=== PATIENT | male | born 1960 | race Caucasian/White ===

== ENCOUNTER 2017-07-07 19:43 | Inpatient (IN) | payer BC ==
[~2017-07-07] VITALS: Ht 177.8 cm; Wt 89.8 kg
[2017-07-07 20:00] VITALS: BP 133/69; RESP 19
[2017-07-07] MEDS ORDERED: DICL1ADH6 TD (20:20)
[2017-07-07] MEDS ORDERED: ATOR40TA68 PO (20:20)
[2017-07-07] MEDS ORDERED: ATEN100T PO (20:20)
[2017-07-07] MEDS ORDERED: LISI1TAB8 PO (20:20)
[2017-07-07] MEDS ORDERED: GLIP-95 PO (20:20)
[2017-07-07] MEDS ORDERED: ACETAMINOPHEN 325 MG TAB PO PRN (20:30)
[2017-07-07] MEDS ORDERED: HYDROCODONE/APAP (5/325) TAB PO PRN (20:30)
[2017-07-07] MEDS ORDERED: morphine 4 MG/ML VIAL IV PRN (20:30)
[2017-07-07 20:36] VITALS: PULSE 76
[2017-07-07 21:36] VITALS: BP 133/64; PULSE 70; RESP 20
[2017-07-07 21:38] VITALS: Ht 177.8 cm; Wt 89.8 kg
[2017-07-08] VITALS (11 sets, daily range): BP systolic 97–131; BP diastolic 58–73; PULSE 61–74; RESP 18–19
[2017-07-08 01:35] LABS: BASOPHIL # 0.1 10^3/ul (0.0-0.1); BASOPHILS % 0.6 % (0.0-2.0); EOSINOPHILS # 0.1 10^3/ul (0.0-0.5); EOSINOPHILS % 1.5 % (0.0-7.0); HEMATOCRIT 32.6 % (42.0-52.0); HEMOGLOBIN 11.3 g/dl (14.0-18.0); LYMPHOCYTES # 1.4 10^3/ul (0.8-2.9); LYMPHOCYTES % 16.2 % (15.0-51.0); MEAN CORPUSCULAR HEMOGLOBIN 35.2 pg (29.0-33.0); MEAN CORPUSCULAR HGB CONC 34.7 g/dl (32.0-37.0); MEAN CORPUSCULAR VOLUME 101.6 fl (82.0-101.0); MEAN PLATELET VOLUME 9.5 fl (7.4-10.4); MONOCYTES % 11.6 % (0.0-11.0); NEUTROPHIL # 6.2 10^3/ul (1.6-7.5); NEUTROPHILS % 69.5 % (39.0-77.0); PLATELET COUNT 166 10^3/UL (140-415); RED BLOOD COUNT 3.21 10^6/ul (4.70-6.10); RED CELL DISTRIBUTION WIDTH 11.9 % (11.5-14.5); WHITE BLOOD COUNT 8.9 10^3/ul (4.8-10.8)
[2017-07-08 02:02] LABS: ALBUMIN 3.1 g/dl (3.3-4.9); ALBUMIN/GLOBULIN RATIO 0.73; BILIRUBIN,INDIRECT 1.4 mg/dl (0-1.1); BILIRUBIN,TOTAL 1.4 mg/dl (0.2-1.3); CALCIUM 9.3 mg/dl (8.4-10.2); CREATININE 1.18 mg/dl (0.61-1.24); MAGNESIUM 1.2 mg/dl (1.7-2.5); PHOSPHORUS 3.8 mg/dl (2.5-4.9); POTASSIUM 4.3 mmol/L (3.5-5.1); TOTAL PROTEIN 7.3 g/dl (6.1-8.1)
[2017-07-08] MEDS ORDERED: MAGNESIUM SULFATE 4 GM/100 ML 100 ML IVPB ONE (03:30)
[2017-07-08] MEDS ORDERED: SOD CHLORIDE 0.9% 500 ML IV ONE (03:30)
[2017-07-08] MEDS ORDERED: DIPHENHYDRAMINE 50 MG INJ IV PRN (03:30)
[2017-07-08] MEDS ORDERED: GLUCOSE GEL 15 GRAM TUBE BUCCAL PRN (03:30)
[2017-07-08] MEDS ORDERED: DIPHENHYDRAMINE 50 MG INJ IV ONE (03:30)
[2017-07-08] MEDS ORDERED: GLUCAGON 1 MG INJ IM PRN (03:30)
[2017-07-08] MEDS ORDERED: DEXTROSE 50% 50 ML SYRINGE IV PRN ×2 (03:30)
[2017-07-08] MEDS ORDERED: GLUCOSE GEL 15 GRAM TUBE PO PRN ×2 (03:30)
[2017-07-08] MEDS: INSULIN ASPART [NOVOLOG] 3 ML PEN SC SCH ×4 (08:07→20:28)
[2017-07-08] MEDS: INSULIN GLARGINE [LANtus] 3 ML PEN SC SCH (08:11)
--- NOTE | 2017-07-08 08:52 | RADRPT ---
PROCEDURE: US carotid arteries. CLINICAL INDICATION: Syncope. Dizziness. TECHNIQUE: Multiple sonographic images of the carotid arteries and vertebral arteries were obtaine d utilizing abad scale, duplex, and color-flow imaging. The images were reviewed on a PACS workstati on. COMPARISON: No prior studies are available for comparison. FINDINGS: Evaluation of the right carotid bifurcation region reveals mild atherosclerotic disease. Evaluation of the left carotid bifurcation region reveals mild atherosclerotic disease. There is antegrade flow within the vertebral arteries bilaterally. RIGHT CAROTID MEASUREMENTS: Common Carotid [id number] (cm/sec) Internal Carotid Artery 58 (cm/sec) External Carotid Artery 76 (cm/sec) Vertebral Artery 37 (cm/sec) Internal Carotid/Common Carotid0.6 LEFT CAROTID MEASUREMENTS: Common Carotid [id number] (cm/sec) Internal Carotid Artery 79 (cm/sec) External Carotid Artery 117 (cm/sec) Vertebral Artery 59 (cm/sec) Internal Carotid/Common Carotid0.8 Validated velocity measurements with angiographic measurements. Velocity criteria are extrapolated f rom diameter data as defined by the Society of Radiologists in Ultrasound Consensus Conference. Radi ology 2003; 229;340-346. This study does indirectly reference the measurement of the distal ICA gay meter as the denominator for stenosis measurement. IMPRESSION: 1. Less than 50% stenosis bilaterally in the internal carotid arteries. 2. Normal antegrade flow in the vertebral arteries bilaterally. RPTAT: QQ SRU Consensus Conference Criteria for the Diagnosis of Carotid Artery Stenosis* Degree of Stenosis, % ICA PSV, cm/sec Plaque Estimate, % ICA/CCA PSV Ratio Normal <125 None <2.0 <50 <125 <50 <2.0 50 69 125-230 >50 2.0-4.0 >70 but less than near occlusion >230 >50 <4.0 Near occlusion High, low, or undetectable Visible Variable Total occlusion Undetectable Visible, no detectable lumen Not applicable *Cartoid artery stenosis: abad-scale and Doppler US diagnosis. Society of Radiologists in Ultrasound Consensus Conference. Radiology 2003; 229: 340-346 .Moy Solo MD, Date Time Electronically viewed and signed by .Moy Solo MD, on 07/08/2017 08:52 .R/
[2017-07-08] MEDS: ASPIRIN (EC) 81 MG TAB PO SCH (09:29)
--- NOTE | 2017-07-08 10:00 | HP ---
Date/Time of Note Date/Time of Note DATE: 07/08/17 TIME: 09:47 Assessment/Plan Lines/Catheters IV Catheter Type (from Nrsg): Saline Lock Assessment/Plan Assessment/Plan 1. Neck pain - per pt has a hx of disc disease -plan is to obtain CT of cervical spine -pain mgmt 2. Syncope - Orthostatic vs Cardiac vs metabolic vs hypoglycemia - telemetry monitoring - 12 lead EKG - 2D-echo - trend trop - correct electrolytes - additional w/u as needed 3. Hyponatremia - NS IVF for now 4. DM -check A1c -insulin while in-house 5. HTN - cont meds with adjustment as needed HPI/ROS Admit Date/Time Admit Date/Time Jul 07, 2017 at 19:43 Hx of Present Illness This is a 56 yo male with hx of HTN, DL, DM, cervical spine disc disease who initially presented to outside hospital c/o neck pain. He said this pain actually started 20 years and had some kind of procedure back then. Lately he has been experiencing pain, especially with movement of neck. he thinks there is a bulging area in back of neck. Denied trauma. pt also has a syncopal episode at OSH parking lot. He got out of his car to go to the ER when he blacked out and fell to the ground. he thinks he hit his head. LOC lasted for about 30sec. It was unwitnessed. Denied CP, SOB, palpitations or lightheadedness. At OSH, he was told it could be from hyponatremia because Na+ was around < 130. He said his sugar was also low. PMH/Family/Social Social History Smoking Status: Never smoker Exam/Review of Systems Vital Signs Vitals Vital Signs Date Time Temp Pulse Resp B/P Pulse Ox O2 Delivery O2 Flow Rate FiO2 07/08/17 08:30 61 07/08/17 04:02 98.2 19 117/70 96 07/07/17 21:36 Room Air Intake and Output 07/07/17 07/07/17 07/08/17 15:00 23:00 07:00 Intake Total 850 ml Balance 850 ml Labs Result Diagram: 07/08/17 0120 07/08/17 0120 Medications Medications Current Medications Morphine Sulfate (morphine) 4 mg Q4H PRN IV pain; Start 07/07/17 at 20:30 Acetaminophen/ Hydrocodone Bitart ([place] (5/325)) 1 tab Q4H PRN PO pain; Start 07/07/17 at 20:30 Acetaminophen (Tylenol Tab) 650 mg Q6H PRN PO PAIN AND OR ELEVATED TEMP; Start 07/07/17 at 20:30 Diphenhydramine HCl (Benadryl) 25 mg Q6H PRN IV itching; Start 07/08/17 at 03: 30 Diagnostic Test (Pha) (Accu-Chek) 1 ea 02 XX ; Start 07/09/17 at 02:00 Insulin Glargine (Lantus) 10 unit DAILY@08 SC Last administered on 07/08/17 08 :11; Admin Dose 10 UNIT; Start 07/08/17 at 08:00 Miscellaneous Information 1 ea NOTE XX ; Start 07/08/17 at 03:30 Glucose (Glutose) 15 gm Q15M PRN PO DECREASED GLUCOSE; Start 07/08/17 at 03:30 Glucose (Glutose) 22.5 gm Q15M PRN PO DECREASED GLUCOSE; Start 07/08/17 at 03: 30 Dextrose (D50w Syringe) 25 ml Q15M PRN IV DECREASED GLUCOSE; Start 07/08/17 at 03:30 Dextrose (D50w Syringe) 50 ml Q15M PRN IV DECREASED GLUCOSE; Start 07/08/17 at 03:30 Glucagon (Glucagen) 1 mg Q15M PRN IM DECREASED GLUCOSE; Start 07/08/17 at 03:30 Glucose (Glutose) 15 gm Q15M PRN BUCCAL DECREASED GLUCOSE; Start 07/08/17 at 03 :30 Aspirin (Halfprin) 81 mg DAILY PO Last administered on 07/08/17 09:29; Admin Dose 81 MG; Start 07/08/17 at 09:00 NADIR JUAREZ MD Jul 08, 2017 10:00
[2017-07-08] MEDS: SOD CHLORIDE 0.9% 1,000 ML IV SCH (10:43)
--- NOTE | 2017-07-08 14:59 | PN ---
Date/Time of Note Date/Time of Note DATE: 07/08/17 TIME: 14:57 Assessment/Plan VTE Prophylaxis VTE Prophylaxis Intervention: LMWH Lines/Catheters IV Catheter Type (from Nrsg): Peripheral IV Assessment/Plan Chief Complaint/Hosp Course 56 yo male with h/o etoh use d/o, chronic neck pain with syncope x 2 over previous days. Found to be hyponatremia, hypoglycemic Hyponatremia: - Suspect SIADH 2/2 thiazide - Hold HCTZ permanently Hypoglycemai: - 2/2 sulfonylurea, defer to PMD about this. Advised patient to only take medication if eating Neck pain: - MRI neck to evalaute Transaminitsi: - suspect 2/2 etoh, will check serologies Syncope: - Likley from orthostasis vs hypoglycemia - Hold BP meds, telemetry, TTE pending - No arrtynmia identified so far Discharge to self care when stable Problems: Subjective 24 Hr Interval Summary Free Text/Dictation Complains of pain in posterior neck, debilitating Otherwise well Syncope histoyr sounds very orhtostatic by histoyr Exam/Review of Systems Vital Signs Vitals Vital Signs Date Time Temp Pulse Resp B/P Pulse Ox O2 Delivery O2 Flow Rate FiO2 07/08/17 12:54 68 07/08/17 11:51 98.0 18 112/59 98 07/07/17 21:36 Room Air Intake and Output 07/07/17 07/07/17 07/08/17 15:00 23:00 07:00 Intake Total 850 ml Balance 850 ml Exam Constitutional: alert, oriented, well developed Psych: nl mood/affect, no complaints Head: atraumatic, normocephalic Eyes: EOMI, PERRL, nl conjunctiva, nl lids, nl sclera ENMT: nl external ears & nose, nl lips & teeth, nl nasal mucosa & septum Neck: non-tender, supple Respiratory: clear to auscultation, normal air movement Cardiovascular: nl pulses, regular rate and rhythm Gastrointestinal: nl liver, spleen, non-tender, soft Musculoskeletal: nl extremities to inspection, nl gait and stance Extremities: normal pulses 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: TABLET TESTER 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, nl mental status, nl speech, nl strength Skin: nl turgor, No rash or lesions Lymph: nl lymph nodes Results Result Diagram: 07/08/17 01207/08/17 0120 Results 24 hrs Laboratory Tests Test 07/07/17 22:02 07/08/17 01:20 07/08/17 06:15 07/08/17 07:59 Bedside Glucose 156 180 White Blood Count 8.9 Red Blood Count 3.21 L Hemoglobin 11.3 L Hematocrit 32.6 L Mean Corpuscular Volume 101.6 H Mean Corpuscular Hemoglobin 35.2 H Mean Corpuscular Hemoglobin Concent 34.7 Red Cell Distribution Width 11.9 Platelet Count 166 Mean Platelet Volume 9.5 Neutrophils % 69.5 Lymphocytes % 16.2 Monocytes % 11.6 H Eosinophils % 1.5 Basophils % 0.6 Nucleated Red Blood Cells % 0.0 Neutrophils # 6.2 Lymphocytes # 1.4 Monocytes # 1.0 H Eosinophils # 0.1 Basophils # 0.1 Nucleated Red Blood Cells # 0.0 Sodium Level 130 L Potassium Level 4.3 Chloride Level 96 L Carbon Dioxide Level 29 Anion Gap 9 Blood Urea Nitrogen 19 Creatinine 1.18 Glucose Level 121 Calcium Level 9.3 Phosphorus Level 3.8 Magnesium Level 1.2 L Total Bilirubin 1.4 H Direct Bilirubin 0.00 Indirect Bilirubin 1.4 H Aspartate Amino Transf (AST/SGOT) 90 H Alanine Aminotransferase (ALT/SGPT) 57 Alkaline Phosphatase 277 H Total Protein 7.3 Albumin 3.1 L Globulin 4.20 H Albumin/Globulin Ratio 0.73 Hemoglobin A1c 6.8 H Troponin I < 0.012 Test 07/08/17 11:45 07/08/17 12:35 Bedside Glucose 317 H Troponin I < 0.012 Medications Medications Current Medications Morphine Sulfate (morphine) 4 mg Q4H PRN IV pain; Start 07/07/17 at 20:30 Acetaminophen/ Hydrocodone Bitart ([place] (5/325)) 1 tab Q4H PRN PO pain; Start 07/07/17 at 20:30 Acetaminophen (Tylenol Tab) 650 mg Q6H PRN PO PAIN AND OR ELEVATED TEMP; Start 07/07/17 at 20:30 Diphenhydramine HCl (Benadryl) 25 mg Q6H PRN IV itching; Start 07/08/17 at 03: 30 Diagnostic Test (Pha) (Accu-Chek) 1 ea 02 XX ; Start 07/09/17 at 02:00 Insulin Glargine (Lantus) 10 unit DAILY@08 SC Last administered on 07/08/17 08 :11; Admin Dose 10 UNIT; Start 07/08/17 at 08:00 Miscellaneous Information 1 ea NOTE XX ; Start 07/08/17 at 03:30 Glucose (Glutose) 15 gm Q15M PRN PO DECREASED GLUCOSE; Start 07/08/17 at 03:30 Glucose (Glutose) 22.5 gm Q15M PRN PO DECREASED GLUCOSE; Start 07/08/17 at 03: 30 Dextrose (D50w Syringe) 25 ml Q15M PRN IV DECREASED GLUCOSE; Start 07/08/17 at 03:30 Dextrose (D50w Syringe) 50 ml Q15M PRN IV DECREASED GLUCOSE; Start 07/08/17 at 03:30 Glucagon (Glucagen) 1 mg Q15M PRN IM DECREASED GLUCOSE; Start 07/08/17 at 03:30 Glucose (Glutose) 15 gm Q15M PRN BUCCAL DECREASED GLUCOSE; Start 07/08/17 at 03 :30 Aspirin 81 mg 81 mg DAILY PO Last administered on 07/08/17 09:29; Admin Dose 81 MG; Start 07/08/17 at 09:00 Sodium Chloride (NS) 1,000 ml @ 100 mls/hr Q10H IV Last administered on 10:43; Admin Dose 100 MLS/HR; Start 07/08/17 at 10:00; Stop 07/08/17 at 23: 00 ARASELI SANTOS MD Jul 08, 2017 14:59
--- NOTE | 2017-07-08 18:34 | RADRPT ---
PROCEDURE: CT Head without. CLINICAL INDICATION: Syncope. TECHNIQUE: The study was performed utilizing a multi-slice, multidetector CT scanner. Direct spira l 1 mm axial sections were obtained through the head without the use of intravenous contrast materia l. 1 or more of the following dose reduction techniques were utilized: Automated exposure control, adjustment of the mA and/or kV according to patient's size, iterative reconstruction technique. Co sinai and sagittal reformations were obtained. The images were reviewed on a PACS workstation. RADIATION DOSE: CTDIvol: 43.2 mGyDLP: 720.2 mGy-cm COMPARISON: No prior studies are available for comparison. FINDINGS: There is no intracranial hemorrhage, extra-axial fluid collection, mass lesion, midline shift or hyd rocephalus. The ventricles, sulci and cisterns are within normal limits. The white matter is unrem arkable. The abad-white matter differentiation is preserved. There is mild atherosclerotic calcifi cation of the bilateral parasellar internal carotid arteries. The basal cisterns are patent. The mi dline structures are intact. The orbits, calvarium and extracranial soft tissues are normal in appe arance. The visualized paranasal sinuses, mastoid air cells and middle ear cavities are normally aer ated. IMPRESSION: 1. No acute intracranial abnormality. No intracranial hemorrhage, extra-axial fluid collection, ma ss lesion or hydrocephalous. RPTAT: HGAS .Mariano Perdue MD, MD Date Time Electronically viewed and signed by .Mariano Perdue MD, MD on 07/08/2017 18:34 .S/
--- NOTE | 2017-07-08 18:39 | RADRPT ---
PROCEDURE: CT Cervical Spine without contrast. CLINICAL INDICATION: Cervical spine pain. TECHNIQUE: The study was performed on a multislice multidetector CT scanner. Spiral axial 1 mm im ages were obtained through the cervical spine and reformatted at 2.5 mm slice thickness without cont rast. 1 or more of the following dose reduction techniques were utilized: Automated exposure contr ol, adjustment of the mA and/or kV according to patient's size, iterative reconstruction technique. Coronal and sagittal reformations were obtained. The images were reviewed on a PACS workstation. RADIATION DOSE: CTDIvol: 22.2 mGyDLP: 467.3 mGy-cm COMPARISON: No prior studies are available for comparison. FINDINGS: There is diffuse straightening the cervical spine without reversal of normal cervical lordosis. Ther e are minimal anterior osteophytes at C4-5, C5-6 and C6-7 with mild to moderate loss of disc-space h eight at C6-7. The craniocervical junction is intact. The vertebral body heights are maintained. The re is diffuse mild osteopenia. There is mild congenital shortening of the cervical spine pedicles, t he spinal canal measuring 10 mm in maximal diameter from C3-C7. The remaining intervertebral disc sp aces appear normal. The cervical canal is unremarkable. There is a no bone destruction or sclerosis. The paraspinal soft tissues are unremarkable. No significant paraspinal soft tissue swelling. C2-3: There is a 1-2 mm posterior disc/osteophyte complex. The thecal sac and neural foramina are p atent. C3-4: There is a broad-based 2-3 mm posterior disc/osteophyte complex. The thecal sac measures 7.8 mm midline AP diameter. There is mild bilateral facet intervertebral joint spondylosis. There is mod erate bilateral neural foraminal narrowing. C4-5: There is a broad-based 3 mm posterior disc/osteophyte complex. The thecal sac measures 6.5 mm midline AP diameter. There is mild bilateral facet hypertrophy and moderate left and mild right unc overtebral joint spondylosis. There is severe left and mild right neural foraminal narrowing. C5-6: There is a 2 mm posterior disc/osteophyte complex. The thecal sac measures 8 mm in midline AP diameter. There is moderate bilateral facet intervertebral joint spondylosis. There is severe bilat eral neural foraminal narrowing. C6-7: There is a Saddle-shaped 2-3 mm posterior disc/osteophyte complex. The thecal sac measures 7 .3 mm midline AP diameter. There is mild to moderate bilateral facet hypertrophy and moderate bilate ral uncovertebral joint spondylosis. There is severe bilateral neural foraminal narrowing. C7-T1: There is a 2 mm left paracentral/foraminal disc/osteophyte complex. The thecal sac is patent , measuring at least 10 mm midline AP diameter. There is mild bilateral facet hypertrophy and modera te left uncovertebral joint spondylosis. There is severe left and mild right neural foraminal narrow ing. IMPRESSION: 1. No acute abnormality of the cervical spine. No evidence of fracture or dislocation. 2. Multilevel moderate spondylosis, worst at C6-7 with moderate central stenosis at C4-5 and C6-7. 3. Multilevel facet and uncovertebral joint spondylosis with severe narrowing of the left C4-5, silvestre ateral C5-6, bilateral C6-7 and left C7-T1 foramina. RPTAT: HGAS .Mariano Perdue MD, MD Date Time Electronically viewed and signed by .Mariano Perdue MD, on 07/08/2017 18:39 .S/
--- NOTE | 2017-07-08 18:40 | RADRPT ---
PROCEDURE: XR Chest. CLINICAL INDICATION: Shortness of breath, evaluate for neck. TECHNIQUE: AP portable views of the chest were obtained. COMPARISON: None available FINDINGS: The cardiomediastinal silhouette is within normal limits. There is mild atherosclerosis of the thora cic aorta without evidence of aneurysm formation. The lungs are clear. No signs of pleural fluid or pneumothorax are seen. The osseous structures and soft tissues are unremarkable. IMPRESSION: 1. No evidence for active cardiopulmonary disease. 2. Mild atherosclerosis of the thoracic aorta. RPTAT: HGAS .Mariano Perdue MD, MD Date Time Electronically viewed and signed by .Mariano Perdue MD, on 07/08/2017 18:39 .S/
[2017-07-09] VITALS (8 sets, daily range): BP systolic 108–131; BP diastolic 62–73; PULSE 66–78; RESP 18
[2017-07-09] MEDS: SOD CHLORIDE 0.9% 1,000 ML IV SCH (00:16)
[2017-07-09] MEDS ORDERED: ACCU-CHEK XX SCH ×2 (02:00)
[2017-07-09 07:04] LABS: BASOPHIL # 0.1 10^3/ul (0.0-0.1); BASOPHILS % 0.8 % (0.0-2.0); EOSINOPHILS # 0.1 10^3/ul (0.0-0.5); EOSINOPHILS % 1.3 % (0.0-7.0); HEMOGLOBIN 10.3 g/dl (14.0-18.0); LYMPHOCYTES # 1.2 10^3/ul (0.8-2.9); LYMPHOCYTES % 19.7 % (15.0-51.0); MEAN CORPUSCULAR HEMOGLOBIN 34.6 pg (29.0-33.0); MEAN CORPUSCULAR HGB CONC 33.2 g/dl (32.0-37.0); MEAN PLATELET VOLUME 9.8 fl (7.4-10.4); MONOCYTE # 0.7 10^3/ul (0.3-0.9); MONOCYTES % 12.5 % (0.0-11.0); NEUTROPHIL # 3.9 10^3/ul (1.6-7.5); NEUTROPHILS % 65.2 % (39.0-77.0); PLATELET COUNT 155 10^3/UL (140-415); RED BLOOD COUNT 2.98 10^6/ul (4.70-6.10); RED CELL DISTRIBUTION WIDTH 12.1 % (11.5-14.5); WHITE BLOOD COUNT 5.9 10^3/ul (4.8-10.8)
[2017-07-09 07:26] LABS: ALBUMIN 2.9 g/dl (3.3-4.9); ALBUMIN/GLOBULIN RATIO 0.74; BILIRUBIN,INDIRECT 1.6 mg/dl (0-1.1); BILIRUBIN,TOTAL 1.6 mg/dl (0.2-1.3); CALCIUM 8.8 mg/dl (8.4-10.2); CREATININE 0.91 mg/dl (0.61-1.24); POTASSIUM 4.4 mmol/L (3.5-5.1); TOTAL PROTEIN 6.8 g/dl (6.1-8.1)
[2017-07-09] MEDS: INSULIN ASPART [NOVOLOG] 3 ML PEN SC SCH ×2 (07:50→11:42)
[2017-07-09] MEDS: INSULIN GLARGINE [LANtus] 3 ML PEN SC SCH (07:51)
[2017-07-09 08:28] LABS: FOLATE 9.1 ng/ml (2.8-20.0)
[2017-07-09] MEDS: ASPIRIN (EC) 81 MG TAB PO SCH (08:28)
--- NOTE | 2017-07-09 11:44 | RADRPT ---
Echocardiogram Report Patient Name: LISA WERNER Gender: Male Date: 1960 Study Date: 08-Jul-2017 Corporate Lawyer: YADIRA Location: I Ref. Physician: NADIR JUAREZ Quality: Adequate Procedures: Transthoracic echocardiogram with complete 2D, M-Mode, and doppler examination, no subcostal images. Indications: Syncope. 2D/M Mode Doppler Measurement Value Normal Ranges Measurement Value Normal Ranges AoR Diam MM 3.2 cm AV Peak Agustin 1.5 m/sec ACS MM 2.2 cm AV Peak PG 8.6 mmHg LVIDd 2D 3.5 3.5 - 5.6 cm LVOT Peak Agustin 1.3 m/sec LVIDs 2D 2.0 2.1 - 4.1 cm LVOT Peak PG 7.2 mmHg LVPWd 2D 1.0 0.6 - 1.1 cm MV E Peak Agustin 0.9 m/sec IVSd 2D 1.1 0.6 - 1.1 cm MV A Peak Agustin 0.7 m/sec EDV 2D 52.0 cm3 MV E/A 1.4 ESV 2D 8.6 cm3 MV Decel Time 202 msec LA Dimen 2D 3.5 2.3 - 4.0 cm MV Decel Morris 5 MV E/A 1.4 PV Peak Agustin 1.1 m/sec PV Peak PG 5.0 mmHg Findings Left Ventricle: Normal left ventricular systolic function. Normal left ventricular cavity size. Normal left ventricular wall thickness. Ejection fraction is visually estimated at 0 %. Tissue Doppler/Mitral Doppler indices are within normal limits. Right Ventricle: Normal right ventricular size. Normal right ventricular systolic function. Left Atrium: The left atrium is normal in size. Right Atrium: The right atrium is normal in size. Atrial Septum: Not well visualized. Mitral Valve: Normal appearance of the mitral valve. No mitral valve regurgitation is seen. Aortic Valve: No significant aortic stenosis or insufficiency. Aortic cusps appear mildly calcified. Trileaflet aortic valve. Tricuspid Valve: Normal appearance of the tricuspid valve. No evidence of tricuspid regurgitation. Pulmonic Valve: Normal pulmonic valve appearance. There is trace pulmonic regurgitation. Pericardium: Normal pericardium with no significant pericardial effusion. Aorta: Normal aortic root. IVC: The IVC is not well visualized. Pulmonary Artery: Normal pulmonary artery size. Conclusions 1.Normal left ventricular systolic function. Normal left ventricular cavity size. Normal left ventricular wall thickness. Ejection fraction is visually estimated at 0 %. Tissue Doppler/Mitral Doppler indices are within normal limits. Electronically Signed By: Ramon Rodriguez 09-Jul-2017 11:44:29 -0700 Patient Name: LISA WERNER Study Date: 08-Jul-2017 [id number]
--- NOTE | 2017-07-09 12:30 | PDOCDIS ---
Discharge Instructions DIAGNOSIS Discharge Diagnosis Syncope CONDITION Patient Condition: Fair HOME CARE INSTRUCTIONS: Special Diet: DIABETIC DIET. FOLLOW UP/APPOINTMENTS Follow-up Plan You were diagnosed with a condition called hyponatremia which was likely a result of your blood pressure medication. 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 It is extremely important that you stop drinking any alcohol for the rest of your life. Please follow up with your primary care provider for further care of your neck pain, liver abnormality, diabetes and other medical conditions ARASELI SANTOS MD Jul 09, 2017 12:30
--- NOTE | 2017-07-09 16:16 | DS ---
Date/Time of Note Date/Time of Note DATE: 07/09/17 TIME: 16:12 Discharge Summary Admission/Discharge Info Admit Date/Time Jul 07, 2017 at 19:43 Discharge Date/Time Jul 09, 2017 at 14:00 Discharge Diagnosis Syncope Patient Condition: Good Hx of Present Illness This is a 56 yo male with hx of HTN, DL, DM, cervical spine disc disease who initially presented to outside hospital c/o neck pain. He said this pain actually started 20 years and had some kind of procedure back then. Lately he has been experiencing pain, especially with movement of neck. he thinks there is a bulging area in back of neck. Denied trauma. pt also has a syncopal episode at OSH parking lot. He got out of his car to go to the ER when he blacked out and fell to the ground. he thinks he hit his head. LOC lasted for about 30sec. It was unwitnessed. Denied CP, SOB, palpitations or lightheadedness. At OSH, he was told it could be from hyponatremia because Na+ was around < 130. He said his sugar was also low. Hospital Course 56 yo male with h/o etoh use d/o, chronic neck pain with syncope x 2 over previous days. Found to be hyponatremia, hypoglycemic Etiology of his hyponatremia was thought to be from his use of HCTZ as an outpatient. This medication was discontinued The patient was found to have degenerative disease of his cervical spine on CT scan. He was offered MRI but preferred to be discharged He was also found to have abnormal LFTs, CBC with macrocytosis suggestive of liver disease. He reports chronic etoh use and is aware of his liver problem. We discussed at length the vital need to abstain from alcohol The patient was continued on his glipizide, but given strict instruction to avoid use if he is not eating to avoid hypoglycemia he will follow up with his primary care provider for further care of his chronic conditions Home Meds Reported Medications Diclofenac Epolamine (Flector) 1 Each Patch.td12, 1 EACH TD DAILY 07/07/17 Glipizide* (Glipizide*) 10 Mg Tablet, 10 MG PO DAILY, TAB 07/07/17 Atorvastatin* (Atorvastatin*) 40 Mg Tablet, 40 MG PO DAILY, #30 TAB 07/07/17 Discontinued Reported Medications Lisinopril/Hydrochlorothiazide (Lisinopril-Hctz 20-25 mg Tab) 1 Each Tablet, 1 EACH PO DAILY, TAB 07/07/17 Atenolol* (Atenolol*) 100 Mg Tablet, 100 MG PO BID, #30 TAB 07/07/17 Follow-up Plan You were diagnosed with a condition called hyponatremia which was likely a result of your blood pressure medication. 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 It is extremely important that you stop drinking any alcohol for the rest of your life. Please follow up with your primary care provider for further care of your neck pain, liver abnormality, diabetes and other medical conditions Primary Care Provider Not On Staff Doctor Pending Labs Laboratory Tests Test 07/08/17 17:42 07/08/17 20:23 07/09/17 02:03 07/09/17 05:48 Bedside Glucose 138mg/dL (70-220) 226mg/dL (70-220) 166mg/dL (70-220) White Blood Count 5.910^3/ul (4.8-10.8) Red Blood Count 2.9810^6/ul (4.70-6.10) Hemoglobin 10.3g/dl (14.0-18.0) Hematocrit 31.0% (42.0-52.0) Mean Corpuscular Volume 104.0fl (82.0-101.0) Mean Corpuscular Hemoglobin 34.6pg (29.0-33.0) Mean Corpuscular Hemoglobin Concent 33.2g/dl (32.0-37.0) Red Cell Distribution Width 12.1% (11.5-14.5) Platelet Count 64947^3/UL (140-415) Mean Platelet Volume 9.8fl (7.4-10.4) Neutrophils % 65.2% (39.0-77.0) Lymphocytes % 19.7% (15.0-51.0) Monocytes % 12.5% (0.0-11.0) Eosinophils % 1.3% (0.0-7.0) Basophils % 0.8% (0.0-2.0) Nucleated Red Blood Cells % 0.0/100WBC (0.0-0.0) Neutrophils # 3.910^3/ul (1.6-7.5) Lymphocytes # 1.210^3/ul (0.8-2.9) Monocytes # 0.710^3/ul (0.3-0.9) Eosinophils # 0.110^3/ul (0.0-0.5) Basophils # 0.110^3/ul (0.0-0.1) Nucleated Red Blood Cells # 0.010^3/ul (0.0-0.0) Sodium Level 133mmol/L (135-144) Potassium Level 4.4mmol/L (3.5-5.1) Chloride Level 98mmol/L (97-110) Carbon Dioxide Level 32mmol/L (21-31) Anion Gap 7 (8-16) Blood Urea Nitrogen 16mg/dl (7-20) Creatinine 0.91mg/dl (0.61-1.24) Glucose Level 144mg/dl (70-220) Calcium Level 8.8mg/dl (8.4-10.2) Total Bilirubin 1.6mg/dl (0.2-1.3) Direct Bilirubin 0.00mg/dl (0.00-0.20) Indirect Bilirubin 1.6mg/dl (0-1.1) Gamma Glutamyl Transpeptidase 1788IU/L (0-50) Aspartate Amino Transf (AST/SGOT) 66IU/L (15-46) Alanine Aminotransferase (ALT/SGPT) 50IU/L (13-69) Alkaline Phosphatase 244IU/L (42-121) Total Protein 6.8g/dl (6.1-8.1) Albumin 2.9g/dl (3.3-4.9) Globulin 3.90g/dl (1.3-3.2) Albumin/Globulin Ratio 0.74 Vitamin B12 Level 824pg/ml (239-931) Folate 9.1ng/ml (2.8-20.0) Thyroid Stimulating Hormone (TSH) 3.900MIU/L (0.465-4.680) Free Thyroxine 1.89ng/dl (0.64-1.79) Hepatitis C Antibody NEGATIVE (NEGATIVE) HIV (1&2) Antibody NEGATIVE (NEGATIVE) Test 07/09/17 07:48 07/09/17 11:36 Bedside Glucose 169mg/dL (70-220) 210mg/dL (70-220) ARASELI SANTOS MD Jul 09, 2017 16:16
--- NOTE | 2017-07-10 17:07 | RADRPT ---
Vent Rate: 68 bpm RR Interval: 0 msec MO Interval: 196 msec QRS Duration: 82 msec QT Interval: 370 msec QTC Interval: 393 msec P-R-T [place]: 49 - 73 - 48 degrees Normal sinus rhythm Low voltage QRS Borderline ECG Electronically Signed By: Jimmy Muñoz [id number]
== END 2017-07-09 14:00 | disposition home or self-care (01) | DRG 312 ==
LOC: TEL 19:43
PROVIDERS: ADMIT Internal Medicine; ATTEND Internal Medicine
DX: I95.1 Orthostatic hypotension (principal); E87.1 Hypo-osmolality and hyponatremia; K70.30 Alcoholic cirrhosis of liver without ascites; M54.2 Cervicalgia; E11.9 Type 2 diabetes mellitus without complications; E78.5 Hyperlipidemia, unspecified; F10.10 Alcohol abuse, uncomplicated; T50.2X5A Adverse effect of carbonic-anhydrase inhibitors, benzothiadiazides and other diuretics, initial encounter; Y92.019 Unspecified place in single-family (private) house as the place of occurrence of the external cause; M50.30 Other cervical disc degeneration, unspecified cervical region; W18.39XA Other fall on same level, initial encounter; Y93.01 Activity, walking, marching and hiking; Y92.481 Parking lot as the place of occurrence of the external cause; Y99.8 Other external cause status; Z79.4 Long term (current) use of insulin
CPT/HCPCS: 70450; 71020; 72125; 80053; 82607; 82746; 82962; 82977; 83036; 83735; 83935; 84100; 84300; 84439; 84443; 84484; 85025; 86703; 86803; 93005; 93306; 93880; J1200; J1815; J7030; J7040

== ENCOUNTER 2017-07-30 22:22 | Inpatient (IN) | payer BC ==
[~2017-07-30] VITALS: Ht 177.8 cm; Wt 89.1 kg
[~2017-07-30 22:22] MED LIST: ATOR40TA68 PO; DICL1ADH6 TD; GLIP-95 PO
[2017-07-31 00:15] VITALS: Ht 177.8 cm; Wt 89.1 kg
[2017-07-31] MEDS: ACCU-CHEK XX SCH ×2 (02:00)
[2017-07-31] MEDS: SOD CHLORIDE 0.9% 1,000 ML IV SCH ×3 (02:00→22:00)
[2017-07-31] MEDS ORDERED: ONDANSETRON 4 MG INJ IV PRN (02:00)
[2017-07-31] MEDS ORDERED: GLUCOSE GEL 15 GRAM TUBE PO PRN ×2 (02:30)
[2017-07-31] MEDS ORDERED: DEXTROSE 50% 50 ML SYRINGE IV PRN ×2 (02:30)
[2017-07-31] MEDS ORDERED: GLUCAGON 1 MG INJ IM PRN (02:30)
[2017-07-31] MEDS ORDERED: GLUCOSE GEL 15 GRAM TUBE BUCCAL PRN (02:30)
[2017-07-31 02:38] VITALS: BP 140/78; RESP 18
[2017-07-31] MEDS: MULTIVITAMINS 10 ML, THIAMINE 100 MG, FOLIC ACID 1 MG in SOD CHLORIDE 0.9% 1,000 ML IVPB SCH (03:52)
[2017-07-31] MEDS: DIPHENHYDRAMINE 25 MG CAP PO SCH ×3 (05:26→21:30)
--- NOTE | 2017-07-31 06:03 | HP ---
Date/Time of Note Date/Time of Note DATE: 07/31/17 TIME: 05:47 Assessment/Plan VTE Prophylaxis VTE Prophylaxis Intervention: SCD's Lines/Catheters Urinary Cath still in place: No Assessment/Plan Assessment/Plan 1. L1-L2 fracture, status post fall, most likely secondary to alcohol intoxication vs hypoglycemia -CT from outside hospital showed fracture of the transverse process of L1-L2. He was evaluated by neurosurgery who stated no surgical intervention needed. -Physical therapy evaluation -Additional imaging as needed -Pain management 2. Alcohol intoxication -Banana bag alternating with IV fluid -Librium and as needed Ativan -Advised again about importance of abstinence from alcohol 3. Generalized skin rash, ? Vasculitis -Check INGRIS, C3, C4, hep B. Hep C during last admission was negative -Topical steroid with as needed Benadryl -Biopsy will be considered 4. History of diabetes -Patient reported episodes of hypoglycemia was blood sugar as low as 20. Home medication includes glipizide, which will be held -Sliding scale insulin for now -Glipizide needs to be discontinued upon discharge. 5. History of hypertension -Continue antihypertensives adjustment as needed 6. Hypokalemia and hypomagnesemia -Replete HPI/ROS Admit Date/Time Admit Date/Time Jul 30, 2017 at 23:51 Hx of Present Illness This is a 56 yo male with hx of HTN, DL, DM, cervical spine disc disease who initially presented to outside hospital c/o fall. He said he had been drinking on a daily basis for over a week. At the outside hospital, he was found to have L1-L2 transverse process fracture. He was evaluated by neurosurgery who stated no surgical intervention needed. His blood alcohol level was found to be elevated. Patient was transferred to [facility] for insurance reason. Denied chest pain, palpitation, lightheadedness. He also said that his blood sugar, at times has been as low as 20. He also complains of progressively worsening generalized body rash which started over a month ago. Initially was on his right thigh area now it is spreading to different part of his body. Patient was admitted by myself here a month ago after he was transferred from an outside hospital for pain on the back of his neck and syncopal episode and hyponatremia. Cervical CT at that time showed Multilevel moderate spondylosis, worst at C6-7 with moderate central stenosis at C4-5 and C6-7 and multilevel facet and uncovertebral joint spondylosis with severe narrowing of the left C4-5, bilateral C5-6, bilateral C6-7 and left C7-T1 foramina. He was offered MRI but according to the discharge summary, he decided to be discharged in a state. His hydrochlorothiazide was discontinued at the time of discharge since it was felt to be the cause of the hyponatremia. PMH/Family/Social Social History Smoking Status: Never smoker Exam/Review of Systems Vital Signs Vitals Vital Signs Date Time Temp Pulse Resp B/P Pulse Ox O2 Delivery O2 Flow Rate FiO2 07/31/17 02:38 98.3 76 18 140/78 98 Exam Constitutional: alert, oriented, well developed Head: atraumatic, normocephalic Eyes: EOMI, PERRL Respiratory: clear to auscultation, normal air movement Cardiovascular: nl pulses, regular rate and rhythm Gastrointestinal: non-tender, soft Extremities: normal pulses Skin: rash or lesions Labs Result Diagram: 07/31/17 0443 Medications Medications Current Medications Ondansetron HCl (Zofran Inj) 4 mg Q6H PRN IV NAUSEA AND/OR VOMITING; Start at 02:00 Diphenhydramine HCl 25 mg 25 mg Q8 PO Last administered on 07/31/17 05:26; Admin Dose 25 MG; Start 07/31/17 at 06:00 Multivitamins 10 ml/Thiamine HCl 100 mg/Folic Acid 1 mg/Sodium Chloride 1,011.2 ml @ 125 mls/ hr DAILY@09 IVPB Last administered on 07/31/17 03:52; Admin Dose 125 MLS/HR; Start 07/31/17 at 09:00; Stop 08/02/17 at 17:06 Sodium Chloride (NS) 1,000 ml @ 100 mls/hr Q10H IV ; Start 07/31/17 at 02:00 Diagnostic Test (Pha) (Accu-Chek) 1 ea 02 XX ; Start 07/31/17 at 02:00 Diagnostic Test (Pha) (Accu-Chek) 1 ea 02 XX ; Start 07/31/17 at 02:00 Miscellaneous Information 1 ea NOTE XX ; Start 07/31/17 at 02:30 Glucose (Glutose) 15 gm Q15M PRN PO DECREASED GLUCOSE; Start 07/31/17 at 02:30 Glucose (Glutose) 22.5 gm Q15M PRN PO DECREASED GLUCOSE; Start 07/31/17 at 02: 30 Dextrose (D50w Syringe) 25 ml Q15M PRN IV DECREASED GLUCOSE; Start 07/31/17 at 02:30 Dextrose (D50w Syringe) 50 ml Q15M PRN IV DECREASED GLUCOSE; Start 07/31/17 at 02:30 Glucagon (Glucagen) 1 mg Q15M PRN IM DECREASED GLUCOSE; Start 07/31/17 at 02: 30 Glucose (Glutose) 15 gm Q15M PRN BUCCAL DECREASED GLUCOSE; Start 07/31/17 at 02:30 Influenza Virus Vaccine (Fluzone) 0.5 ml ONCE ONCE IM* ; Start 08/01/17 at 09: 00; Stop 08/01/17 at 09:01 NADIR JUAREZ MD Jul 31, 2017 06:00
[2017-07-31] MEDS ORDERED: POTASSIUM CHLORIDE (SR) 20 MEQ TAB PO STA (06:08)
[2017-07-31] MEDS ORDERED: LORAZEPAM 2 MG INJ IV PRN (06:30)
[2017-07-31] MEDS ORDERED: hydrALAzine 20 MG INJ IV PRN (06:30)
[2017-07-31 08:00] VITALS: BP 171/83; RESP 19
[2017-07-31] MEDS ORDERED: MAGNESIUM SULFATE 2 GM/50 ML 50 ML IVPB ONE (08:00)
[2017-07-31] MEDS: INSULIN ASPART [NOVOLOG] 3 ML PEN SC SCH ×4 (08:00→21:29)
[2017-07-31] MEDS: CHLORDIAZEPOXIDE 25 MG CAP PO SCH ×3 (08:31→20:27)
[2017-07-31 14:00] VITALS: BP 166/84; RESP 17
--- NOTE | 2017-07-31 15:28 | PN ---
Date/Time of Note Date/Time of Note DATE: 07/31/17 TIME: 15:19 Assessment/Plan VTE Prophylaxis VTE Prophylaxis Intervention: SCD's Lines/Catheters IV Catheter Type (from Nrs): Peripheral IV Urinary Cath still in place: No Assessment/Plan Assessment/Plan 1. L1-L2 fracture, status post fall, most likely secondary to alcohol intoxication vs hypoglycemia -CT from outside hospital showed fracture of the transverse process of L1-L2. He was evaluated by neurosurgery who stated no surgical intervention needed. -Physical therapy evaluation -Additional imaging as needed -Pain management 2. Alcohol intoxication -Banana bag alternating with IV fluid -Librium and as needed Ativan -Advised again about importance of abstinence from alcohol 3. Generalized skin rash, ? Vasculitis -Check INGRIS, C3, C4, hep B. Hep C during last admission was negative -Topical steroid with as needed Benadryl -Biopsy will be considered 4. DM, hypoglycemia events, hold glipizide 5. Hypertension, -Continue antihypertensives adjustment as needed 6. Hypokalemia and hypomagnesemia, replacement, follow up with K Mg Subjective 24 Hr Interval Summary Free Text/Dictation pain at neck, rashes all over Exam/Review of Systems Vital Signs Vitals Vital Signs Date Time Temp Pulse Resp B/P Pulse Ox O2 Delivery O2 Flow Rate FiO2 07/31/17 08:00 98.6 85 19 171/83 96 Intake and Output 07/30/17 07/30/17 07/31/17 15:00 23:00 07:00 Intake Total 200 ml Balance 200 ml Exam Constitutional: alert, oriented, well developed Psych: nl mood/affect, no complaints Head: atraumatic, normocephalic Eyes: EOMI, nl conjunctiva, nl lids ENMT: nl external ears & nose, nl lips & teeth, nl nasal mucosa & septum Neck: non-tender, supple Respiratory: clear to auscultation, normal air movement, No congested cough, No crackles/rales, No diminished breath sounds, No intercostal retraction, No labored breathing, No other, No respirations, No tactile fremitus, No wheezing Cardiovascular: nl pulses, regular rate and rhythm, No S3, No S4, No bruits, No diastolic murmur, No edema, No gallop, No irregular rhythm, No jugular venous distention (JVD), No murmurs/extra sounds, No other, No rub, No systolic murmur Gastrointestinal: nl liver, spleen, non-tender, soft, No ascites, No bowel sounds, No distended, No firm, No hepatomegaly, No mass , No other, No rebound or guarding, No splenomegaly, No surgical scars, No tender Musculoskeletal: nl extremities to inspection Extremities: normal pulses, No calf tenderness, No clubbing, No cyanosis, No edema, No other, No palpable cord, No pitting pedal edema, No tenderness 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: [employer] 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, nl mental status, nl speech, nl strength Skin: other (diffuse macular/papular rashes) Lymph: nl lymph nodes Results Result Diagram: 07/31/1744207/31/17442 Results 24 hrs Laboratory Tests Test 07/31/17 04:43 07/31/17 08:33 07/31/17 11:59 White Blood Count 4.8 Red Blood Count 3.26 L Hemoglobin 11.6 L Hematocrit 33.3 L Mean Corpuscular Volume 102.1 H Mean Corpuscular Hemoglobin 35.6 H Mean Corpuscular Hemoglobin Concent 34.8 Red Cell Distribution Width 11.9 Platelet Count 129 L Mean Platelet Volume 9.9 Neutrophils % 61.0 Lymphocytes % 23.8 Monocytes % 11.9 H Eosinophils % 2.3 Basophils % 0.8 Nucleated Red Blood Cells % 0.0 Neutrophils # 2.9 Lymphocytes # 1.1 Monocytes # 0.6 Eosinophils # 0.1 Basophils # 0.0 Nucleated Red Blood Cells # 0.0 Sodium Level 143 Potassium Level 3.3 L Chloride Level 106 Carbon Dioxide Level 25 Anion Gap 15 Blood Urea Nitrogen 5 L Creatinine 0.81 Glucose Level 75 Calcium Level 8.3 L Phosphorus Level 3.6 Magnesium Level 1.4 L Bedside Glucose 124 178 Medications Medications Current Medications Ondansetron HCl (Zofran Inj) 4 mg Q6H PRN IV NAUSEA AND/OR VOMITING; Start at 02:00 Diphenhydramine HCl 25 mg 25 mg Q8 PO Last administered on 07/31/17 14:14; Admin Dose 25 MG; Start 07/31/17 at 06:00 Multivitamins 10 ml/Thiamine HCl 100 mg/Folic Acid 1 mg/Sodium Chloride 1,011.2 ml @ 125 mls/ hr DAILY@09 IVPB Last administered on 07/31/17 03:52; Admin Dose 125 MLS/HR; Start 07/31/17 at 09:00; Stop 08/02/17 at 17:06 Sodium Chloride (NS) 1,000 ml @ 100 mls/hr Q10H IV Last administered on 12:44; Admin Dose 100 MLS/HR; Start 07/31/17 at 02:00 Diagnostic Test (Pha) (Accu-Chek) 1 ea 02 XX ; Start 07/31/17 at 02:00 Diagnostic Test (Pha) (Accu-Chek) 1 ea 02 XX ; Start 07/31/17 at 02:00 Miscellaneous Information 1 ea NOTE XX ; Start 07/31/17 at 02:30 Glucose (Glutose) 15 gm Q15M PRN PO DECREASED GLUCOSE; Start 07/31/17 at 02:30 Glucose (Glutose) 22.5 gm Q15M PRN PO DECREASED GLUCOSE; Start 07/31/17 at 02: 30 Dextrose (D50w Syringe) 25 ml Q15M PRN IV DECREASED GLUCOSE; Start 07/31/17 at 02:30 Dextrose (D50w Syringe) 50 ml Q15M PRN IV DECREASED GLUCOSE; Start 07/31/17 at 02:30 Glucagon (Glucagen) 1 mg Q15M PRN IM DECREASED GLUCOSE; Start 07/31/17 at 02: 30 Glucose (Glutose) 15 gm Q15M PRN BUCCAL DECREASED GLUCOSE; Start 07/31/17 at 02:30 Influenza Virus Vaccine (Fluzone) 0.5 ml ONCE ONCE IM* ; Start 08/01/17 at 09: 00; Stop 08/01/17 at 09:01 Hydralazine HCl (Apresoline) 10 mg Q4H PRN IV SBP > 160; Start 07/31/17 at 06: 30 Chlordiazepoxide (Librium) 50 mg TID PO Last administered on 07/31/17 12:43; Admin Dose 50 MG; Start 07/31/17 at 09:00 Lorazepam (Ativan) 2 mg Q1H PRN IV CONTROL WITHDRAWAL SYMPTOMS; Start at 06:30 BURT QUINTERO MD Jul 31, 2017 15:28
[2017-07-31 19:55] VITALS: BP 142/73; RESP 20
[2017-08-01] MEDS: ACCU-CHEK XX SCH ×2 (02:00)
[2017-08-01] MEDS: SOD CHLORIDE 0.9% 1,000 ML IV SCH ×2 (02:12→17:28)
[2017-08-01 02:15] VITALS: BP 124/71; RESP 20
[2017-08-01] MEDS: DIPHENHYDRAMINE 25 MG CAP PO SCH ×3 (05:37→22:45)
[2017-08-01 07:55] VITALS: BP 143/90; RESP 20
[2017-08-01] MEDS ORDERED: INFLUENZA VIRUS VACCINE 0.5 ML (DISPENSING) IM* ONE (09:00)
[2017-08-01] MEDS: CHLORDIAZEPOXIDE 25 MG CAP PO SCH ×3 (09:10→20:30)
[2017-08-01] MEDS: MULTIVITAMINS 10 ML, THIAMINE 100 MG, FOLIC ACID 1 MG in SOD CHLORIDE 0.9% 1,000 ML IVPB SCH (09:10)
[2017-08-01] MEDS: INSULIN ASPART [NOVOLOG] 3 ML PEN SC SCH ×4 (09:13→22:50)
[2017-08-01 14:00] VITALS: BP 136/84; RESP 20
--- NOTE | 2017-08-01 14:19 | PN ---
Date/Time of Note Date/Time of Note DATE: 08/01/17 TIME: 13:49 Assessment/Plan VTE Prophylaxis VTE Prophylaxis Intervention: SCD's Lines/Catheters IV Catheter Type (from Nrs): Peripheral IV Urinary Cath still in place: No Assessment/Plan Assessment/Plan 1. L1-L2 transverse process of L1-L2 fracture, status post fall, most likely secondary to alcohol intoxication, medical management 2. Alcohol intoxication, resolved, advise to quit, decrease librium 3. Generalized skin rash, ? Vasculitis -Check INGRIS, C3, C4, hep B. Hep C during last admission was negative -Topical steroid with as needed Benadryl -Biopsy will be considered 4. DM, hypoglycemia events, start metformin 08/01/2017 5. Hypertension, start lisinopril 08/01/2017 Subjective 24 Hr Interval Summary Free Text/Dictation no agitation, no tremor Exam/Review of Systems Vital Signs Vitals Vital Signs Date Time Temp Pulse Resp B/P Pulse Ox O2 Delivery O2 Flow Rate FiO2 08/01/17 07:55 98.4 81 20 143/90 99 Intake and Output 07/31/17 07/31/17 08/01/17 15:00 23:00 07:00 Intake Total 1011.2 ml 1220 ml 1480 ml Balance 1011.2 ml 1220 ml 1480 ml Exam Constitutional: alert, oriented, well developed Psych: nl mood/affect, no complaints Head: atraumatic, normocephalic Eyes: EOMI, nl conjunctiva, nl lids ENMT: nl external ears & nose, nl lips & teeth, nl nasal mucosa & septum Neck: non-tender, supple Respiratory: clear to auscultation, normal air movement, No congested cough, No crackles/rales, No diminished breath sounds, No intercostal retraction, No labored breathing, No other, No respirations, No tactile fremitus, No wheezing Cardiovascular: nl pulses, regular rate and rhythm, No S3, No S4, No bruits, No diastolic murmur, No edema, No gallop, No irregular rhythm, No jugular venous distention (JVD), No murmurs/extra sounds, No other, No rub, No systolic murmur Gastrointestinal: nl liver, spleen, non-tender, soft, No ascites, No bowel sounds, No distended, No firm, No hepatomegaly, No mass , No other, No rebound or guarding, No splenomegaly, No surgical scars, No tender Musculoskeletal: nl extremities to inspection Extremities: normal pulses, No calf tenderness, No clubbing, No cyanosis, No edema, No other, No palpable cord, No pitting pedal edema, No tenderness 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, nl mental status, nl speech, nl strength Skin: other (diffuse rashes, no new rashes) Results Result Diagram: 07/31/1744207/31/17442 Results 24 hrs Laboratory Tests Test 07/31/17 17:55 07/31/17 20:25 07/31/17 21:26 08/01/17 02:15 Bedside Glucose 140 188 207 169 Test 08/01/17 05:13 08/01/17 09:08 08/01/17 12:07 Complement C3 89 Complement C4 23 Hepatitis B Surface Antigen NEGATIVE Hepatitis B Surface Antibody NEGATIVE Bedside Glucose 201 177 Medications Medications Current Medications Ondansetron HCl (Zofran Inj) 4 mg Q6H PRN IV NAUSEA AND/OR VOMITING; Start at 02:00 Diphenhydramine HCl 25 mg 25 mg Q8 PO Last administered on 08/01/17 05:37; Admin Dose 25 MG; Start 07/31/17 at 06:00 Multivitamins 10 ml/Thiamine HCl 100 mg/Folic Acid 1 mg/Sodium Chloride 1,011.2 ml @ 125 mls/ hr DAILY@09 IVPB Last administered on 08/01/17 09:10; Admin Dose 125 MLS/HR; Start 07/31/17 at 09:00; Stop 08/02/17 at 17:06 Sodium Chloride (NS) 1,000 ml @ 100 mls/hr Q10H IV Last administered on 02:12; Admin Dose 100 MLS/HR; Start 07/31/17 at 02:00 Diagnostic Test (Pha) (Accu-Chek) 1 ea 02 XX ; Start 07/31/17 at 02:00 Diagnostic Test (Pha) (Accu-Chek) 1 ea 02 XX ; Start 07/31/17 at 02:00 Miscellaneous Information 1 ea NOTE XX ; Start 07/31/17 at 02:30 Glucose (Glutose) 15 gm Q15M PRN PO DECREASED GLUCOSE; Start 07/31/17 at 02:30 Glucose (Glutose) 22.5 gm Q15M PRN PO DECREASED GLUCOSE; Start 07/31/17 at 02: 30 Dextrose (D50w Syringe) 25 ml Q15M PRN IV DECREASED GLUCOSE; Start 07/31/17 at 02:30 Dextrose (D50w Syringe) 50 ml Q15M PRN IV DECREASED GLUCOSE; Start 07/31/17 at 02:30 Glucagon (Glucagen) 1 mg Q15M PRN IM DECREASED GLUCOSE; Start 07/31/17 at 02: 30 Glucose (Glutose) 15 gm Q15M PRN BUCCAL DECREASED GLUCOSE; Start 07/31/17 at 02:30 Hydralazine HCl (Apresoline) 10 mg Q4H PRN IV SBP > 160; Start 07/31/17 at 06: 30 Chlordiazepoxide (Librium) 50 mg TID PO Last administered on 08/01/17t 12:12; Admin Dose 50 MG; Start 07/31/17 at 09:00 Lorazepam (Ativan) 2 mg Q1H PRN IV CONTROL WITHDRAWAL SYMPTOMS; Start at 06:30 BURT QUINTERO MD Aug 01, 2017 14:01
[2017-08-01] MEDS: LISINOPRIL 10 MG TAB PO SCH (14:48)
[2017-08-01] MEDS: metFORMIN 500 MG TAB PO SCH (17:28)
[2017-08-01 20:06] VITALS: BP 155/75; RESP 19
[2017-08-02] MEDS: ACCU-CHEK XX SCH ×2 (02:00)
[2017-08-02 02:05] VITALS: BP 122/61; RESP 18
[2017-08-02] MEDS: SOD CHLORIDE 0.9% 1,000 ML IV SCH ×3 (02:49→21:44)
[2017-08-02] MEDS: DIPHENHYDRAMINE 25 MG CAP PO SCH ×3 (05:43→21:44)
[2017-08-02 07:52] VITALS: BP 142/87; RESP 20
[2017-08-02] MEDS: metFORMIN 500 MG TAB PO SCH ×2 (08:16→17:52)
[2017-08-02] MEDS: CHLORDIAZEPOXIDE 25 MG CAP PO SCH ×2 (08:17→12:45)
[2017-08-02] MEDS: LISINOPRIL 10 MG TAB PO SCH (08:17)
[2017-08-02] MEDS: INSULIN ASPART [NOVOLOG] 3 ML PEN SC SCH ×4 (08:20→20:39)
[2017-08-02] MEDS: FOLIC ACID 1 MG TAB PO SCH (09:40)
[2017-08-02 14:23] VITALS: BP 107/71; RESP 16
--- NOTE | 2017-08-02 14:47 | PN ---
Date/Time of Note Date/Time of Note DATE: 08/02/17 TIME: 14:38 Assessment/Plan VTE Prophylaxis VTE Prophylaxis Intervention: SCD's Lines/Catheters IV Catheter Type (from Nrs): Peripheral IV Urinary Cath still in place: No Assessment/Plan Assessment/Plan 1. Recurrent syncope, negative CT head and carotid US, echo, neurology/ cardiology consult 2. L1-L2 transverse process of L1-L2 fracture, status post fall, medical management 3. Alcohol intoxication, resolved, advise to quit, decrease librium 4. Generalized skin rash, likely allergic reaction, rheumatology, Dr. Abreu consult 4. DM, hypoglycemia events, start metformin 08/01/2017 5. Hypertension, start lisinopril 08/01/2017, stable 6. I had a long talk with the patient to explain the findings and plan to him Subjective 24 Hr Interval Summary Free Text/Dictation no syncope. less rashes Exam/Review of Systems Vital Signs Vitals Vital Signs Date Time Temp Pulse Resp B/P Pulse Ox O2 Delivery O2 Flow Rate FiO2 08/02/17 14:23 98.7 91 16 107/71 99 Intake and Output 08/01/17 08/01/17 08/02/17 15:00 23:00 07:00 Intake Total 300 ml 1751.2 ml 1170 ml Output Total 600 ml 0 ml Balance 300 ml 1151.2 ml 1170 ml Exam Constitutional: alert, oriented, well developed Head: atraumatic, normocephalic Eyes: EOMI, PERRL, nl conjunctiva, nl lids, nl sclera ENMT: nl external ears & nose, nl lips & teeth, nl nasal mucosa & septum Neck: non-tender, supple Respiratory: clear to auscultation, normal air movement, No congested cough, No crackles/rales, No diminished breath sounds, No intercostal retraction, No labored breathing, No other, No respirations, No tactile fremitus, No wheezing Cardiovascular: nl pulses, regular rate and rhythm, No S3, No S4, No bruits, No diastolic murmur, No edema, No gallop, No irregular rhythm, No jugular venous distention (JVD), No murmurs/extra sounds, No other, No rub, No systolic murmur Gastrointestinal: nl liver, spleen, non-tender, soft, No ascites, No bowel sounds, No distended, No firm, No hepatomegaly, No mass , No other, No rebound or guarding, No splenomegaly, No surgical scars, No tender Musculoskeletal: nl extremities to inspection Extremities: normal pulses, No calf tenderness, No clubbing, No cyanosis, No edema, No other, No palpable cord, No pitting pedal edema, No tenderness 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: 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 STENOGRAPHER 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, nl mental status, nl speech, nl strength Skin: other (rashes on truck and extremities) Results Result Diagram: 07/31/17 0443 08/02/17 0518 Results 24 hrs Laboratory Tests Test 08/01/17 17:21 08/01/17 22:47 08/02/17 02:06 08/02/17 05:18 Bedside Glucose 124 203 225 H Sodium Level 140 Potassium Level 4.0 Chloride Level 107 Carbon Dioxide Level 28 Anion Gap 9 Blood Urea Nitrogen 12 Creatinine 0.96 Glucose Level 177 Calcium Level 8.5 Magnesium Level 1.4 L Total Bilirubin 0.9 Direct Bilirubin 0.00 Indirect Bilirubin 0.9 Aspartate Amino Transf (AST/SGOT) 45 Alanine Aminotransferase (ALT/SGPT) 38 Alkaline Phosphatase 183 H Total Protein 5.8 L Albumin 2.4 L Globulin 3.40 H Albumin/Globulin Ratio 0.70 Test 08/02/17 08:14 08/02/17 12:43 Bedside Glucose 159 161 Medications Medications Current Medications Ondansetron HCl (Zofran Inj) 4 mg Q6H PRN IV NAUSEA AND/OR VOMITING; Start at 02:00 Diphenhydramine HCl 25 mg 25 mg Q8 PO Last administered on 08/02/17 14:34; Admin Dose 25 MG; Start 07/31/17 at 06:00 Sodium Chloride (NS) 1,000 ml @ 100 mls/hr Q10H IV Last administered on 02:49; Admin Dose 100 MLS/HR; Start 07/31/17 at 02:00 Diagnostic Test (Pha) (Accu-Chek) 1 ea 02 XX ; Start 07/31/17 at 02:00 Diagnostic Test (Pha) (Accu-Chek) 1 ea 02 XX ; Start 07/31/17 at 02:00 Miscellaneous Information 1 ea NOTE XX ; Start 07/31/17 at 02:30 Glucose (Glutose) 15 gm Q15M PRN PO DECREASED GLUCOSE; Start 07/31/17 at 02:30 Glucose (Glutose) 22.5 gm Q15M PRN PO DECREASED GLUCOSE; Start 07/31/17 at 02: 30 Dextrose (D50w Syringe) 25 ml Q15M PRN IV DECREASED GLUCOSE; Start 07/31/17 at 02:30 Dextrose (D50w Syringe) 50 ml Q15M PRN IV DECREASED GLUCOSE; Start 07/31/17 at 02:30 Glucagon (Glucagen) 1 mg Q15M PRN IM DECREASED GLUCOSE; Start 07/31/17 at 02: 30 Glucose (Glutose) 15 gm Q15M PRN BUCCAL DECREASED GLUCOSE; Start 07/31/17 at 02:30 Hydralazine HCl (Apresoline) 10 mg Q4H PRN IV SBP > 160; Start 07/31/17 at 06: 30 Lorazepam (Ativan) 2 mg Q1H PRN IV CONTROL WITHDRAWAL SYMPTOMS; Start at 06:30 Chlordiazepoxide (Librium) 25 mg TID PO Last administered on 08/02/17 12:45; Admin Dose 25 MG; Start 08/01/17 at 21:00 Lisinopril 10 mg 10 mg DAILY PO Last administered on 08/02/17 08:17; Admin Dose 10 MG; Start 08/01/17 at 14:00 Multivitamins/ Thiamine HCl/ Sodium Chloride (Mvi Adult/ Vitamin B1/NS) 1,011 ml @ 125 mls/hr DAILY@09 IVPB ; Start 08/03/17 at 09:00; Stop 08/03/17 at 17: 06 Folic Acid (Folic Acid) 1 mg DAILY PO Last administered on 08/02/17 09:40; Admin Dose 1 MG; Start 08/02/17 at 09:00; Stop 08/04/17 at 09:01 BURT QUINTERO MD Aug 02, 2017 14:47
[2017-08-02] MEDS ORDERED: MAGNESIUM SULFATE 2 GM/50 ML 50 ML IVPB ONE (16:00)
--- NOTE | 2017-08-02 17:56 | RADRPT ---
Echocardiogram Report Patient Name: LISA WERNER Gender: Male Date: 1960 Study Date: 02-Aug-2017 Residential Plumber: LILIA Location: 2259 Ref. Physician: BURT QUINTERO Quality: Good Procedures: Transthoracic echocardiogram with complete 2D, M-Mode, and doppler examination. Indications: Syncope. 2D/M Mode Doppler Measurement Value Normal Ranges Measurement Value Normal Ranges AoR Diam MM 3.1 cm WALLY Vmax 2.5 cm2 ACS MM 2.0 cm WALLY VTI 2.5 cm2 LA/Ao MM 1.2 AV Peak Agustin 1.1 m/sec LA Dimen MM 3.7 cm AV Peak PG 4.6 mmHg LVIDd 2D 4.2 3.5 - 5.6 cm LVOT Peak Agustin 0.9 m/sec LVIDs 2D 2.8 2.1 - 4.1 cm LVOT Peak PG 3.4 mmHg LVPWd 2D 1.1 0.6 - 1.1 cm MV E Peak Agustin 0.8 m/sec IVSd 2D 1.1 0.6 - 1.1 cm MV A Peak Agustin 0.7 m/sec EDV 2D 77.7 cm3 MV E/A 1.1 ESV 2D 23.0 cm3 MV Decel Time 172 msec EF 2D 60.0 50.0 - 65.0 % MV Decel Lincoln 4 LVOT Diam 1.9 cm MV E/A 1.1 TR Peak Agustin 2.0 m/sec TR Peak PG 16.5 mmHg Findings Left Ventricle: Normal left ventricular systolic function. Normal left ventricular cavity size. Normal left ventricular wall thickness. Ejection fraction is visually estimated at 6065 %. Tissue Doppler/Mitral Doppler indices are consistent with pseudonormalization with mildly elevated left atrial pressure (Stage II diastolic dysfunction). Right Ventricle: Normal right ventricular size. Normal right ventricular systolic function. Left Atrium: The left atrium is normal in size. Right Atrium: The right atrium is normal in size. Mitral Valve: Normal appearance and function of the mitral valve with trace physiologic regurgitation. Aortic Valve: Normal appearance of the aortic valve. No significant aortic stenosis or insufficiency. Tricuspid Valve: Normal appearance and function of the tricuspid valve with trace physiologic regurgitation. Normal right ventricular systolic pressure. Unable to obtain RVSP due to minimal presence of tricuspid regurgitation. Pulmonic Valve: Normal pulmonic valve appearance. Pericardium: Normal pericardium with no significant pericardial effusion. Aorta: Normal aortic root. IVC: The IVC is not well visualized. Conclusions 1.The left ventricle is normal in size and systolic function. 2.Estimated left ventricular ejection fraction of 60-65%. 3.Grade 2 diastolic dysfunction. Electronically Signed By: Tommy Agosto 02-Aug-2017 17:55:16 -0700 Patient Name: LISA WERNER Study Date: 02-Aug-2017 [id number]
[2017-08-02 20:30] VITALS: BP 110/65; RESP 19
[2017-08-02] MEDS: CHLORDIAZEPOXIDE 5 MG CAP PO SCH (20:40)
[2017-08-02] MEDS ORDERED: CHLORDIAZEPOXIDE 25 MG CAP PO SCH (21:00)
[2017-08-03] MEDS ORDERED: MAGNESIUM HYDROXIDE 30ML CUP PO ONE
[2017-08-03] MEDS: SENNA TAB PO SCH ×3 (00:21→20:46)
[2017-08-03] MEDS: FAMOTIDINE 20 MG TAB PO SCH ×3 (00:21→20:45)
[2017-08-03] MEDS: ACCU-CHEK XX SCH ×2 (02:00)
[2017-08-03 02:04] VITALS: BP 115/66; RESP 18
[2017-08-03] MEDS: DIPHENHYDRAMINE 25 MG CAP PO SCH ×3 (05:10→20:45)
[2017-08-03] MEDS: metFORMIN 500 MG TAB PO SCH ×2 (07:58→17:37)
[2017-08-03 08:00] VITALS: BP 123/74; RESP 18
[2017-08-03] MEDS: INSULIN ASPART [NOVOLOG] 3 ML PEN SC SCH ×4 (08:02→20:48)
[2017-08-03] MEDS ORDERED: MULTIVITAMINS 10 ML, THIAMINE 100 MG in SOD CHLORIDE 0.9% 1,000 ML IVPB SCH (09:00)
[2017-08-03] MEDS: CHLORDIAZEPOXIDE 5 MG CAP PO SCH ×3 (09:08→20:45)
[2017-08-03] MEDS: FOLIC ACID 1 MG TAB PO SCH (09:08)
[2017-08-03] MEDS: LISINOPRIL 10 MG TAB PO SCH (09:13)
[2017-08-03] MEDS: SOD CHLORIDE 0.9% 1,000 ML IV SCH ×2 (10:00→17:55)
[2017-08-03 14:34] VITALS: BP 116/78; RESP 18
--- NOTE | 2017-08-03 15:34 | CONS ---
Date/Time of Note Date/Time of Note DATE: 08/03/17 TIME: 15:23 Assessment/Plan Assessment/Plan Chief Complaint/Hosp Course Assessment: Recurrent syncope - cardiac work up unrevealing, suspect secondary to hypoglycemia and/or alcohol intoxication Hypertension Dyslipidemia Diabetes mellitus - glipizide has been changed to metformin, which will decrease risk for hypoglycemia Gout Cervical spine degenerative disc disease L1-L2 transverse process fracture - per primary team Alcohol abuse - advised cessation Recommendations: -recent EKG normal -current echocardiogram showed normal LVEF 60-65%, no significant valve disease -carotid Dopplers without obstructive disease -no additional cardiac work up at this time -continue lisinopril 10mg daily -resume on statin Problems: Consultation Date/Type/Reason Admit Date/Time Jul 30, 2017 at 23:51 Type of Consultation: Cardiology Reason for Consultation syncope Hx of Present Illness The patient is a 56 year-old male who presented to an outside hospital after a syncopal episode. He was noted to have elevated blood alcohol level. The patient was on glipizide for diabetes and reported blood glucose levels down to the 20s. He has had recurrent episodes of syncope over the past several months, and was hospitalized in June 2017 after a syncopal episode thought secondary to hypoglycemia. 14 point review of systems negative other than per HPI. Past Medical History Hypertension Dyslipidemia Diabetes mellitus Gout Cervical spine degenerative disc disease Past Surgical History Past Surgical Hx: no surgical history Family History Significant Family History: no pertinent family hx Social History Alcohol Use: heavy Smoking Status: Never smoker Drug Use: none Exam/Review of Systems Vital Signs Vitals Vital Signs Date Time Temp Pulse Resp B/P Pulse Ox O2 Delivery O2 Flow Rate FiO2 08/03/17 14:34 98.1 90 18 116/78 96 Intake and Output 08/02/17 08/02/17 08/03/17 15:00 23:00 07:00 Intake Total 700 ml 1630 ml 600 ml Balance 700 ml 1630 ml 600 ml Exam Constitutional: alert, well developed Psych: nl mood/affect, no complaints Head: atraumatic, normocephalic Eyes: nl conjunctiva, nl lids ENMT: nl external ears & nose, nl nasal mucosa & septum Neck: non-tender, supple, No jvd Respiratory: clear to auscultation, normal air movement Cardiovascular: regular rate and rhythm, No murmurs/extra sounds Gastrointestinal: non-tender, soft Musculoskeletal: nl extremities to inspection Extremities: No clubbing, No cyanosis, No edema 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: nl mental status, nl speech Skin: No rash or lesions (diffuse rash) Results Result Diagram: 07/31/17 0443 08/02/17 0518 Results 24 hrs Laboratory Tests Test 08/02/17 17:51 08/02/17 20:38 08/03/17 04:52 08/03/17 07:57 Bedside Glucose 166 177 149 Magnesium Level 1.5 L Test 08/03/17 10:53 08/03/17 12:10 Erythrocyte Sedimentation Rate 41 H C-Reactive Protein 3.3 H Bedside Glucose 140 Medications Medications Current Medications Ondansetron HCl (Zofran Inj) 4 mg Q6H PRN IV NAUSEA AND/OR VOMITING; Start at 02:00 Diphenhydramine HCl 25 mg 25 mg Q8 PO Last administered on 08/02/17 14:34; Admin Dose 25 MG; Start 07/31/17 at 06:00 Sodium Chloride (NS) 1,000 ml @ 100 mls/hr Q10H IV Last administered on 21:44; Admin Dose 100 MLS/HR; Start 07/31/17 at 02:00 Diagnostic Test (Pha) (Accu-Chek) 1 ea 02 XX ; Start 07/31/17 at 02:00 Diagnostic Test (Pha) (Accu-Chek) 1 ea 02 XX ; Start 07/31/17 at 02:00 Miscellaneous Information 1 ea NOTE XX ; Start 07/31/17 at 02:30 Glucose (Glutose) 15 gm Q15M PRN PO DECREASED GLUCOSE; Start 07/31/17 at 02:30 Glucose (Glutose) 22.5 gm Q15M PRN PO DECREASED GLUCOSE; Start 07/31/17 at 02: 30 Dextrose (D50w Syringe) 25 ml Q15M PRN IV DECREASED GLUCOSE; Start 07/31/17 at 02:30 Dextrose (D50w Syringe) 50 ml Q15M PRN IV DECREASED GLUCOSE; Start 07/31/17 at 02:30 Glucagon (Glucagen) 1 mg Q15M PRN IM DECREASED GLUCOSE; Start 07/31/17 at 02: 30 Glucose (Glutose) 15 gm Q15M PRN BUCCAL DECREASED GLUCOSE; Start 07/31/17 at 02:30 Hydralazine HCl (Apresoline) 10 mg Q4H PRN IV SBP > 160; Start 07/31/17 at 06: 30 Lorazepam (Ativan) 2 mg Q1H PRN IV CONTROL WITHDRAWAL SYMPTOMS; Start at 06:30 Lisinopril 10 mg 10 mg DAILY PO Last administered on 08/03/17 09:13; Admin Dose 10 MG; Start 08/01/17 at 14:00 Multivitamins/ Thiamine HCl/ Sodium Chloride (Mvi Adult/ Vitamin B1/NS) 1,011 ml @ 125 mls/hr DAILY@09 IVPB Last administered on 08/03/17 09:08; Admin Dose 125 MLS/HR; Start 08/03/17 at 09:00; Stop 08/03/17 at 17:06 Folic Acid (Folic Acid) 1 mg DAILY PO Last administered on 08/03/17 09:08; Admin Dose 1 MG; Start 08/02/17 at 09:00; Stop 08/04/17 at 09:01 Chlordiazepoxide (Librium) 10 mg TID PO Last administered on 08/03/17 12:11; Admin Dose 10 MG; Start 08/02/17 at 21:00 Famotidine (Pepcid) 20 mg BID PO Last administered on 08/03/17 09:08; Admin Dose 20 MG; Start 08/03/17 at 00:00 Senna (Senokot) 2 tab BID PO Last administered on 08/03/17 09:08; Admin Dose 2 TAB; Start 08/03/17 at 00:00 SAPNA JIMENEZ MD Aug 03, 2017 15:34
--- NOTE | 2017-08-03 16:01 | PN ---
Date/Time of Note Date/Time of Note DATE: 08/03/17 TIME: 16:00 Assessment/Plan VTE Prophylaxis VTE Prophylaxis Intervention: SCD's Lines/Catheters IV Catheter Type (from Nrs): Peripheral IV Urinary Cath still in place: No Assessment/Plan Assessment/Plan 1. Recurrent syncope, negative CT head and carotid US, echo, neurology/ cardiology consult 2. L1-L2 transverse process of L1-L2 fracture, status post fall, medical management 3. Alcohol intoxication, resolved, advise to quit, decrease librium 4. Generalized skin rash, likely allergic reaction, rheumatology, Dr. Abreu consult 4. DM, hypoglycemia events, start metformin 08/01/2017 5. Hypertension, start lisinopril 08/01/2017, stable Subjective 24 Hr Interval Summary Free Text/Dictation no event Exam/Review of Systems Vital Signs Vitals Vital Signs Date Time Temp Pulse Resp B/P Pulse Ox O2 Delivery O2 Flow Rate FiO2 08/03/17 14:34 98.1 90 18 116/78 96 Intake and Output 08/02/17 08/02/17 08/03/17 14:59 22:59 06:59 Intake Total 700 ml 1630 ml 600 ml Balance 700 ml 1630 ml 600 ml Exam Constitutional: alert, oriented, well developed Psych: nl mood/affect, no complaints Head: atraumatic, normocephalic Eyes: EOMI, nl conjunctiva, nl lids ENMT: nl external ears & nose, nl lips & teeth, nl nasal mucosa & septum Neck: non-tender, supple Respiratory: clear to auscultation, normal air movement, No congested cough, No crackles/rales, No diminished breath sounds, No intercostal retraction, No labored breathing, No other, No respirations, No tactile fremitus, No wheezing Cardiovascular: nl pulses, regular rate and rhythm, No S3, No S4, No bruits, No diastolic murmur, No edema, No gallop, No irregular rhythm, No jugular venous distention (JVD), No murmurs/extra sounds, No other, No rub, No systolic murmur Gastrointestinal: nl liver, spleen, non-tender, soft Musculoskeletal: nl extremities to inspection Extremities: normal pulses, No calf tenderness, No clubbing, No cyanosis, No edema, No other, No palpable cord, No pitting pedal edema, No tenderness 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: 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 COLORIST FORMULATOR 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, nl mental status, nl speech, nl strength Skin: other (no new rashes) Results Result Diagram: 07/31/17 0443 08/02/17 0518 Results 24 hrs Laboratory Tests Test 08/02/17 17:51 08/02/17 20:38 08/03/17 04:52 08/03/17 07:57 Bedside Glucose 166 177 149 Magnesium Level 1.5 L Test 08/03/17 10:53 08/03/17 12:10 Erythrocyte Sedimentation Rate 41 H C-Reactive Protein 3.3 H Bedside Glucose 140 Medications Medications Current Medications Ondansetron HCl (Zofran Inj) 4 mg Q6H PRN IV NAUSEA AND/OR VOMITING; Start at 02:00 Diphenhydramine HCl 25 mg 25 mg Q8 PO Last administered on 08/02/17 14:34; Admin Dose 25 MG; Start 07/31/17 at 06:00 Sodium Chloride (NS) 1,000 ml @ 100 mls/hr Q10H IV Last administered on 21:44; Admin Dose 100 MLS/HR; Start 07/31/17 at 02:00 Diagnostic Test (Pha) (Accu-Chek) 1 ea 02 XX ; Start 07/31/17 at 02:00 Diagnostic Test (Pha) (Accu-Chek) 1 ea 02 XX ; Start 07/31/17 at 02:00 Miscellaneous Information 1 ea NOTE XX ; Start 07/31/17 at 02:30 Glucose (Glutose) 15 gm Q15M PRN PO DECREASED GLUCOSE; Start 07/31/17 at 02:30 Glucose (Glutose) 22.5 gm Q15M PRN PO DECREASED GLUCOSE; Start 07/31/17 at 02: 30 Dextrose (D50w Syringe) 25 ml Q15M PRN IV DECREASED GLUCOSE; Start 07/31/17 at 02:30 Dextrose (D50w Syringe) 50 ml Q15M PRN IV DECREASED GLUCOSE; Start 07/31/17 at 02:30 Glucagon (Glucagen) 1 mg Q15M PRN IM DECREASED GLUCOSE; Start 07/31/17 at 02: 30 Glucose (Glutose) 15 gm Q15M PRN BUCCAL DECREASED GLUCOSE; Start 07/31/17 at 02:30 Hydralazine HCl (Apresoline) 10 mg Q4H PRN IV SBP > 160; Start 07/31/17 at 06: 30 Lorazepam (Ativan) 2 mg Q1H PRN IV CONTROL WITHDRAWAL SYMPTOMS; Start at 06:30 Lisinopril 10 mg 10 mg DAILY PO Last administered on 08/03/17 09:13; Admin Dose 10 MG; Start 08/01/17 at 14:00 Multivitamins/ Thiamine HCl/ Sodium Chloride (Mvi Adult/ Vitamin B1/NS) 1,011 ml @ 125 mls/hr DAILY@09 IVPB Last administered on 08/03/17 09:08; Admin Dose 125 MLS/HR; Start 08/03/17 at 09:00; Stop 08/03/17 at 17:06 Folic Acid (Folic Acid) 1 mg DAILY PO Last administered on 08/03/17 09:08; Admin Dose 1 MG; Start 08/02/17 at 09:00; Stop 08/04/17 at 09:01 Chlordiazepoxide (Librium) 10 mg TID PO Last administered on 08/03/17 12:11; Admin Dose 10 MG; Start 08/02/17 at 21:00 Famotidine (Pepcid) 20 mg BID PO Last administered on 08/03/17 09:08; Admin Dose 20 MG; Start 08/03/17 at 00:00 Senna (Senokot) 2 tab BID PO Last administered on 08/03/17 09:08; Admin Dose 2 TAB; Start 08/03/17 at 00:00 BURT QUINTERO MD Aug 03, 2017 16:01
[2017-08-03] MEDS ORDERED: MAGNESIUM SULFATE 2 GM/50 ML 50 ML IVPB ONE (17:30)
--- NOTE | 2017-08-03 19:24 | CONS ---
DATE OF ADMISSION: 07/30/2017 DATE OF CONSULTATION: TYPE OF CONSULTATION: Rheumatology. REQUESTING PHYSICIAN: Dr. Venegas. REASON FOR CONSULT: Rash. HISTORY OF PRESENT ILLNESS: The patient is a 56-year-old male with history of diabetes, hypertensio n, hyperlipidemia and cervical spine disease who presented to an outside hospital after a fall. The patient admits to having been drinking excessively for the past week. At the outside hospital, he was found to have an L1-L2 transverse process fracture, and he was evaluated by neurosurgery who sta jessica no surgical intervention was needed. His blood alcohol level of note was found to be elevated. He was transferred to [facility] for insurance reasons. At that time and current ly, he denies any chest pain, palpitations, lightheadedness, fever, chills, nausea, vomiting; vasquez hobbs, he does admit that his blood sugars do become low at times, as low as 20. He has also noticed a progressively worsening body rash that he states he has had for a month or 2. He is not a very good historian. He says the rash was initially on his right thigh and now it is spreading to all differ ent parts of his body. He denies pruritus or pain with the rash. He denies taking new drugs; [place], as stated above, he is not a very good historian. The patient denies any history of known autoi mmune conditions. He denies IV drug use. SOCIAL HISTORY: Never a smoker, moderate to significant alcohol use. Denies IV drug use. PAST SURGICAL HISTORY: None. PAST MEDICAL HISTORY: As stated above, diabetes, hypertension, hyperlipidemia and cervical spine di sk disease. PHYSICAL EXAMINATION: VITAL SIGNS: Currently, temperature 98.7, pulse 94, BP 123/74, respiratory rate 18, satting 95% on room air. GENERAL: Alert and oriented, no acute distress, pleasant male. HEENT: NC/AT. Extraocular movements intact. Oropharynx is clear. NECK: Supple. ABDOMEN: Soft, nontender, nondistended. CARDIOVASCULAR: S1, S2, regular rate and rhythm. RESPIRATORY: Clear to auscultation bilaterally. MUSCULOSKELETAL: No joint effusion, no joint warmth. No clubbing or cyanosis, 1+ lower extremity e elsa bilaterally. SKIN: Bilateral lower extremities from the hips down with kind of a purpura-looking petechiae that are nonblanching and are not raised. There is underlying erythematous accumulation. The distributi on of the rash is, as I said, from the hips down the inner aspect of bilateral lower extremities and bilateral lateral thorax. Nothing on the back. Nothing on the chest. Nothing on the face. IMPRESSION AND PLAN: Again, the patient is a 56-year-old male with hypertension, diabetes, hyperlip idemia, cervical spine disease who is presenting here after an L2-L1 transverse process fracture fro m a fall and also alcoholic who also has a chronic rash. 1. Rash. Visibly, it is most consistent with a leukocytoclastic or small vessel vasculitis which i n and of itself is nonspecific. These are usually secondary to an underlying disease in which case this patient does not really meet criteria. He has negative INGRIS, so negative for lupus, and he does not really meet criteria for any other known autoimmune disease at this time; however, an ANCA and cryoglobulins have been ordered as well as an SSA, SSB. Otherwise, this rash is most commonly secon kinjal to drugs, some kind of medication or other drugs the patient is ingesting. There is no discret e treatment for the rash. The offending agent has to be removed. If the rash continues to get wors e, I recommend he get a skin biopsy. He needs to see a bending press operator for the skin biopsy and be fol lowed by the bending press operator. He does not need to stay in-house for this rash. This can be all done workup as an outpatient. Please let us know if you have any further questions or concerns. Thank maycol mary for having me participate in this patient's care. Dictated By: DEVANG TATE/ESTEFANY Conf#: [id number] DID#: [id number]
--- NOTE | 2017-08-03 19:24 | CONS ---
DATE OF ADMISSION: 07/30/2017 DATE OF CONSULTATION: TYPE OF CONSULTATION: Rheumatology. REQUESTING PHYSICIAN: Dr. Venegas. REASON FOR CONSULT: Rash. HISTORY OF PRESENT ILLNESS: The patient is a 56-year-old male with history of diabetes, hypertensio n, hyperlipidemia and cervical spine disease who presented to an outside hospital after a fall. The patient admits to having been drinking excessively for the past week. At the outside hospital, he was found to have an L1-L2 transverse process fracture, and he was evaluated by neurosurgery who sta jessica no surgical intervention was needed. His blood alcohol level of note was found to be elevated. He was transferred to [facility] for insurance reasons. At that time and current ly, he denies any chest pain, palpitations, lightheadedness, fever, chills, nausea, vomiting; vasquez hobbs, he does admit that his blood sugars do become low at times, as low as 20. He has also noticed a progressively worsening body rash that he states he has had for a month or 2. He is not a very good historian. He says the rash was initially on his right thigh and now it is spreading to all differ ent parts of his body. He denies pruritus or pain with the rash. He denies taking new drugs; sumit mesa, as stated above, he is not a very good historian. The patient denies any history of known autoi mmune conditions. He denies IV drug use. SOCIAL HISTORY: Never a smoker, moderate to significant alcohol use. Denies IV drug use. PAST SURGICAL HISTORY: None. PAST MEDICAL HISTORY: As stated above, diabetes, hypertension, hyperlipidemia and cervical spine di sk disease. PHYSICAL EXAMINATION: VITAL SIGNS: Currently, temperature 98.7, pulse 94, BP 123/74, respiratory rate 18, satting 95% on room air. GENERAL: Alert and oriented, no acute distress, pleasant male. HEENT: NC/AT. Extraocular movements intact. Oropharynx is clear. NECK: Supple. ABDOMEN: Soft, nontender, nondistended. CARDIOVASCULAR: S1, S2, regular rate and rhythm. RESPIRATORY: Clear to auscultation bilaterally. MUSCULOSKELETAL: No joint effusion, no joint warmth. No clubbing or cyanosis, 1+ lower extremity e esla bilaterally. SKIN: Bilateral lower extremities from the hips down with kind of a purpura-looking petechiae that are nonblanching and are not raised. There is underlying erythematous accumulation. The distributi on of the rash is, as I said, from the hips down the inner aspect of bilateral lower extremities and bilateral lateral thorax. Nothing on the back. Nothing on the chest. Nothing on the face. IMPRESSION AND PLAN: Again, the patient is a 56-year-old male with hypertension, diabetes, hyperlip idemia, cervical spine disease who is presenting here after an L2-L1 transverse process fracture fro m a fall and also alcoholic who also has a chronic rash. 1. Rash. Visibly, it is most consistent with a leukocytoclastic or small vessel vasculitis which i n and of itself is nonspecific. These are usually secondary to an underlying disease in which case this patient does not really meet criteria. He has negative INGRIS, so negative for lupus, and he does not really meet criteria for any other known autoimmune disease at this time; however, an ANCA and cryoglobulins have been ordered as well as an SSA, SSB. Otherwise, this rash is most commonly secon kinjal to drugs, some kind of medication or other drugs the patient is ingesting. There is no discret e treatment for the rash. The offending agent has to be removed. If the rash continues to get wors e, I recommend he get a skin biopsy. He needs to see a supplemental nurse for the skin biopsy and be fol lowed by the supplemental nurse. He does not need to stay in-house for this rash. This can be all done workup as an outpatient. Please let us know if you have any further questions or concerns. Thank maycol mary for having me participate in this patient's care. Dictated By: DEVANG TATE/ESTEFANY Conf#: [id number] DID#: [id number]
[2017-08-03 19:55] VITALS: BP 111/59; RESP 20
[2017-08-04] MEDS: ACCU-CHEK XX SCH ×2 (02:52)
[2017-08-04] MEDS: DIPHENHYDRAMINE 25 MG CAP PO SCH ×3 (05:36→21:53)
[2017-08-04] MEDS: SOD CHLORIDE 0.9% 1,000 ML IV SCH (05:41)
[2017-08-04] MEDS: traMADol 50 MG TAB PO PRN ×2 (06:22→12:11)
[2017-08-04 08:00] VITALS: BP 113/56; RESP 18
[2017-08-04] MEDS: INSULIN ASPART [NOVOLOG] 3 ML PEN SC SCH ×4 (08:00→21:00)
[2017-08-04] MEDS: FOLIC ACID 1 MG TAB PO SCH (08:16)
[2017-08-04] MEDS: FAMOTIDINE 20 MG TAB PO SCH ×2 (08:16→21:53)
[2017-08-04] MEDS: metFORMIN 500 MG TAB PO SCH ×2 (08:16→17:38)
[2017-08-04] MEDS: SENNA TAB PO SCH ×2 (08:16→21:53)
[2017-08-04] MEDS: LISINOPRIL 10 MG TAB PO SCH (08:16)
[2017-08-04] MEDS: CHLORDIAZEPOXIDE 5 MG CAP PO SCH ×3 (08:17→21:53)
--- NOTE | 2017-08-04 12:30 | CONS ---
Date/Time of Note Date/Time of Note DATE: 08/04/17 TIME: 12:25 Assessment/Plan Assessment/Plan Chief Complaint/Hosp Course 56 yo male w alcohol abuse, HTN, HLD, Cervical disc disease Lumbar fx admitted from OSH with elevated blood alcohol level and report of LE pain/rash as well as syncopal event week prior. Head CT Duplex are unrevealing, no hx of seizures Recommend: counseling for ETOH abuse IV Thiamine, Folic Acid, MV Banana bag monitor for sx of alcohol withdrawal continue current management, may reconsult as needed Problems: Consultation Date/Type/Reason Admit Date/Time Jul 30, 2017 at 23:51 Date of Consultation: Aug 04, 2017 Type of Consultation: Neurology Reason for Consultation syncope Referring Provider: BURT QUINTERO MD Hx of Present Illness 56 yo hx of HTN, DM, HLD, Cervical spine disease, alcohol abuse drinks up 6 pack reportedly daily history of syncopal events. Per patient he is often found on the floor with LOC, no tongue biting urinary incontinence or seizures ever reported. At an outside hospital L1-L2 transverse process fx noted, evaluated by neurosurgery had elevated PORFIRIO level at outside hospital. He is now back to baseline c/o of pain and rash in his LE. CTH unrevealing and Carotid Duplex negative for sig stenosis. No seizures reported or further events inpatient. . 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 SUPERVISOR 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, DTR's symmetric, nl mental status, nl speech, nl strength Results Result Diagram: 08/04/17 0532 08/04/17 0532 Results 24 hrs Laboratory Tests Test 08/03/17 17:35 08/03/17 20:47 08/04/17 02:42 08/04/17 05:32 Bedside Glucose 227 H 192 142 White Blood Count 5.8 # Red Blood Count 3.14 L Hemoglobin 10.8 L Hematocrit 33.1 L Mean Corpuscular Volume 105.4 H Mean Corpuscular Hemoglobin 34.4 H Mean Corpuscular Hemoglobin Concent 32.6 Red Cell Distribution Width 12.4 Platelet Count 117 L Mean Platelet Volume 10.1 Neutrophils % 63.4 Lymphocytes % 22.2 Monocytes % 11.1 H Eosinophils % 2.1 Basophils % 0.9 Nucleated Red Blood Cells % 0.0 Neutrophils # 3.7 Lymphocytes # 1.3 Monocytes # 0.6 Eosinophils # 0.1 Basophils # 0.1 Nucleated Red Blood Cells # 0.0 Sodium Level 138 Potassium Level 4.2 Chloride Level 105 Carbon Dioxide Level 27 Anion Gap 10 Blood Urea Nitrogen 11 Creatinine 0.84 Glucose Level 148 Calcium Level 8.8 Magnesium Level 1.3 L Test 08/04/17 08:15 08/04/17 12:03 08/04/17 12:03 Bedside Glucose 135 194 Lab Scanned Report REFERENCE LAB Medications Medications Current Medications Ondansetron HCl (Zofran Inj) 4 mg Q6H PRN IV NAUSEA AND/OR VOMITING; Start at 02:00 Diphenhydramine HCl 25 mg 25 mg Q8 PO Last administered on 08/04/17 05:36; Admin Dose 25 MG; Start 07/31/17 at 06:00 Sodium Chloride (NS) 1,000 ml @ 100 mls/hr Q10H IV Last administered on 05:41; Admin Dose 100 MLS/HR; Start 07/31/17 at 02:00 Diagnostic Test (Pha) (Accu-Chek) 1 ea XX Last administered on 08/04/17 02 :52; Admin Dose 1 EA; Start 07/31/17 at 02:00 Diagnostic Test (Pha) (Accu-Chek) 1 ea XX Last administered on 08/04/17 02 :52; Admin Dose 1 EA; Start 07/31/17 at 02:00 Miscellaneous Information 1 ea NOTE XX ; Start 07/31/17 at 02:30 Glucose (Glutose) 15 gm Q15M PRN PO DECREASED GLUCOSE; Start 07/31/17 at 02:30 Glucose (Glutose) 22.5 gm Q15M PRN PO DECREASED GLUCOSE; Start 07/31/17 at 02: 30 Dextrose (D50w Syringe) 25 ml Q15M PRN IV DECREASED GLUCOSE; Start 07/31/17 at 02:30 Dextrose (D50w Syringe) 50 ml Q15M PRN IV DECREASED GLUCOSE; Start 07/31/17 at 02:30 Glucagon (Glucagen) 1 mg Q15M PRN IM DECREASED GLUCOSE; Start 07/31/17 at 02: 30 Glucose (Glutose) 15 gm Q15M PRN BUCCAL DECREASED GLUCOSE; Start 07/31/17 at 02:30 Hydralazine HCl (Apresoline) 10 mg Q4H PRN IV SBP > 160; Start 07/31/17 at 06: 30 Lorazepam (Ativan) 2 mg Q1H PRN IV CONTROL WITHDRAWAL SYMPTOMS; Start at 06:30 Lisinopril (Zestril) 10 mg DAILY PO Last administered on 08/04/17 08:16; Admin Dose 10 MG; Start 08/01/17 at 14:00 Chlordiazepoxide (Librium) 10 mg TID PO Last administered on 08/04/17 08:17; Admin Dose 10 MG; Start 08/02/17 at 21:00 Famotidine (Pepcid) 20 mg BID PO Last administered on 08/04/17 08:16; Admin Dose 20 MG; Start 08/03/17 at 00:00 Senna (Senokot) 2 tab BID PO Last administered on 08/04/17 08:16; Admin Dose 2 TAB; Start 08/03/17 at 00:00 Tramadol HCl (Ultram) 50 mg Q6H PRN PO PAIN Last administered on 08/04/17 12: 11; Admin Dose 50 MG; Start 08/04/17 at 06:30 TRIPP CHIN MD Aug 04, 2017 12:30
[2017-08-04 14:00] VITALS: BP 141/63; RESP 18
--- NOTE | 2017-08-04 14:55 | PN ---
Date/Time of Note Date/Time of Note DATE: 08/04/17 TIME: 14:51 Assessment/Plan VTE Prophylaxis VTE Prophylaxis Intervention: SCD's Lines/Catheters IV Catheter Type (from Nrsg): Peripheral IV Urinary Cath still in place: No Assessment/Plan Assessment/Plan 1. Recurrent syncope, unlikely cardiac or neurological, no further work up needed 2. L1-L2 transverse process of L1-L2 fracture, status post fall, medical management 3. Alcohol intoxication, resolved, advise to quit, stop librium 08/04/2017 4. Generalized skin rash, likely allergic reaction, outpatient dermatology if recurrent at home 5. DM, hypoglycemia events, start metformin 08/01/2017 6. Hypertension, start lisinopril 08/01/2017, stable 7. Peripheral edema, stop IVF, one dose of lasix Subjective 24 Hr Interval Summary Free Text/Dictation leg swelling Exam/Review of Systems Vital Signs Vitals Vital Signs Date Time Temp Pulse Resp B/P Pulse Ox O2 Delivery O2 Flow Rate FiO2 08/04/17 08:00 98.6 62 18 113/56 96 Intake and Output 08/03/17 08/03/17 08/04/17 15:00 23:00 07:00 Intake Total 950 ml 2430 ml 1500 ml Output Total 1175 ml Balance 950 ml 2430 ml 325 ml Exam Constitutional: alert, oriented, well developed Psych: nl mood/affect, no complaints Head: atraumatic, normocephalic Eyes: EOMI, nl conjunctiva, nl lids ENMT: nl external ears & nose, nl lips & teeth, nl nasal mucosa & septum Neck: non-tender, supple Respiratory: clear to auscultation, normal air movement, No congested cough, No crackles/rales, No diminished breath sounds, No intercostal retraction, No labored breathing, No other, No respirations, No tactile fremitus, No wheezing Cardiovascular: nl pulses, regular rate and rhythm Gastrointestinal: nl liver, spleen, non-tender, soft, No ascites, No bowel sounds, No distended, No firm, No hepatomegaly, No mass , No other, No rebound or guarding, No splenomegaly, No surgical scars, No tender Musculoskeletal: nl extremities to inspection Extremities: edema (mild swelling on both feet/anknle), normal pulses, No calf tenderness, No clubbing, No cyanosis, No other, No palpable cord, No pitting pedal edema, No tenderness 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: LANDCARE FACILITATOR 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, nl mental status, nl speech, nl strength Skin: other (fading rashes on extremities and trunk) Results Result Diagram: 08/04/17 0532 08/04/17 0532 Results 24 hrs Laboratory Tests Test 08/03/17 17:35 08/03/17 20:47 08/04/17 02:42 08/04/17 05:32 Bedside Glucose 227 H 192 142 White Blood Count 5.8 # Red Blood Count 3.14 L Hemoglobin 10.8 L Hematocrit 33.1 L Mean Corpuscular Volume 105.4 H Mean Corpuscular Hemoglobin 34.4 H Mean Corpuscular Hemoglobin Concent 32.6 Red Cell Distribution Width 12.4 Platelet Count 117 L Mean Platelet Volume 10.1 Neutrophils % 63.4 Lymphocytes % 22.2 Monocytes % 11.1 H Eosinophils % 2.1 Basophils % 0.9 Nucleated Red Blood Cells % 0.0 Neutrophils # 3.7 Lymphocytes # 1.3 Monocytes # 0.6 Eosinophils # 0.1 Basophils # 0.1 Nucleated Red Blood Cells # 0.0 Sodium Level 138 Potassium Level 4.2 Chloride Level 105 Carbon Dioxide Level 27 Anion Gap 10 Blood Urea Nitrogen 11 Creatinine 0.84 Glucose Level 148 Calcium Level 8.8 Magnesium Level 1.3 L Test 08/04/17 08:15 08/04/17 12:03 08/04/17 12:03 Bedside Glucose 135 194 Lab Scanned Report REFERENCE LAB Medications Medications Current Medications Ondansetron HCl (Zofran Inj) 4 mg Q6H PRN IV NAUSEA AND/OR VOMITING; Start at 02:00 Diphenhydramine HCl (Benadryl) 25 mg Q8 PO Last administered on 08/04/17 05: 36; Admin Dose 25 MG; Start 07/31/17 at 06:00 Diagnostic Test (Pha) (Accu-Chek) 1 ea XX Last administered on 08/04/17 02 :52; Admin Dose 1 EA; Start 07/31/17 at 02:00 Diagnostic Test (Pha) (Accu-Chek) 1 ea 02 XX Last administered on 08/04/17 02 :52; Admin Dose 1 EA; Start 07/31/17 at 02:00 Miscellaneous Information 1 ea NOTE XX ; Start 07/31/17 at 02:30 Glucose (Glutose) 15 gm Q15M PRN PO DECREASED GLUCOSE; Start 07/31/17 at 02:30 Glucose (Glutose) 22.5 gm Q15M PRN PO DECREASED GLUCOSE; Start 07/31/17 at 02: 30 Dextrose (D50w Syringe) 25 ml Q15M PRN IV DECREASED GLUCOSE; Start 07/31/17 at 02:30 Dextrose (D50w Syringe) 50 ml Q15M PRN IV DECREASED GLUCOSE; Start 07/31/17 at 02:30 Glucagon (Glucagen) 1 mg Q15M PRN IM DECREASED GLUCOSE; Start 07/31/17 at 02: 30 Glucose (Glutose) 15 gm Q15M PRN BUCCAL DECREASED GLUCOSE; Start 07/31/17 at 02:30 Hydralazine HCl (Apresoline) 10 mg Q4H PRN IV SBP > 160; Start 07/31/17 at 06: 30 Lorazepam (Ativan) 2 mg Q1H PRN IV CONTROL WITHDRAWAL SYMPTOMS; Start at 06:30 Lisinopril (Zestril) 10 mg DAILY PO Last administered on 08/04/17 08:16; Admin Dose 10 MG; Start 08/01/17 at 14:00 Chlordiazepoxide (Librium) 10 mg TID PO Last administered on 08/04/17 08:17; Admin Dose 10 MG; Start 08/02/17 at 21:00 Famotidine (Pepcid) 20 mg BID PO Last administered on 08/04/17 08:16; Admin Dose 20 MG; Start 08/03/17 at 00:00 Senna (Senokot) 2 tab BID PO Last administered on 08/04/17 08:16; Admin Dose 2 TAB; Start 08/03/17 at 00:00 Tramadol HCl 50 mg 50 mg Q6H PRN PO PAIN Last administered on 08/04/17 12:11 ; Admin Dose 50 MG; Start 08/04/17 at 06:30 Magnesium Sulfate (Magnesium Sulfate 4 Gm/100 ml) 100 ml @ 25 mls/hr ONCE IVPB ; Start 08/04/17 at 15:00; Stop 08/04/17 at 18:59 BURT QUINTERO MD Aug 04, 2017 14:55
--- NOTE | 2017-08-04 14:58 | CONS ---
Date/Time of Note Date/Time of Note DATE: 08/04/17 TIME: 14:57 Assessment/Plan Assessment/Plan Chief Complaint/Hosp Course Assessment: Recurrent syncope - cardiac work up unrevealing, suspect secondary to hypoglycemia and/or alcohol intoxication Hypertension Dyslipidemia Diabetes mellitus - glipizide has been changed to metformin, which will decrease risk for hypoglycemia Gout Cervical spine degenerative disc disease L1-L2 transverse process fracture - per primary team Alcohol abuse - advised cessation Rash - per rheumatology Recommendations: -recent EKG normal -current echocardiogram showed normal LVEF 60-65%, no significant valve disease -carotid Dopplers without obstructive disease -no additional cardiac work up at this time -continue lisinopril 10mg daily -resume on statin Problems: Consultation Date/Type/Reason Admit Date/Time Jul 30, 2017 at 23:51 Initial Consult Date 08/04/17 Type of Consultation: Cardiology 24 HR Interval Summary Free Text/Dictation No acute events. No further syncope. No hypoglycemia. Detailed Summary Additional Comments 14 point review of systems without changes. Exam/Review of Systems Vital Signs Vitals Vital Signs Date Time Temp Pulse Resp B/P Pulse Ox O2 Delivery O2 Flow Rate FiO2 08/04/17 08:00 98.6 62 18 113/56 96 Intake and Output 08/03/17 08/03/17 08/04/17 15:00 23:00 07:00 Intake Total 950 ml 2430 ml 1500 ml Output Total 1175 ml Balance 950 ml 2430 ml 325 ml Exam Constitutional: alert, well developed Psych: nl mood/affect, no complaints Head: atraumatic, normocephalic Eyes: nl conjunctiva, nl lids ENMT: nl external ears & nose, nl nasal mucosa & septum Neck: non-tender, supple, No jvd Respiratory: clear to auscultation, normal air movement Cardiovascular: regular rate and rhythm, No murmurs/extra sounds Gastrointestinal: non-tender, soft Musculoskeletal: nl extremities to inspection Extremities: No clubbing, No cyanosis, No edema 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: nl mental status, nl speech Skin: No rash or lesions (diffuse rash) Results Result Diagram: 08/04/17 0532 08/04/17 0532 Results 24 hrs Laboratory Tests Test 08/03/17 17:35 08/03/17 20:47 08/04/17 02:42 08/04/17 05:32 Bedside Glucose 227 H 192 142 White Blood Count 5.8 # Red Blood Count 3.14 L Hemoglobin 10.8 L Hematocrit 33.1 L Mean Corpuscular Volume 105.4 H Mean Corpuscular Hemoglobin 34.4 H Mean Corpuscular Hemoglobin Concent 32.6 Red Cell Distribution Width 12.4 Platelet Count 117 L Mean Platelet Volume 10.1 Neutrophils % 63.4 Lymphocytes % 22.2 Monocytes % 11.1 H Eosinophils % 2.1 Basophils % 0.9 Nucleated Red Blood Cells % 0.0 Neutrophils # 3.7 Lymphocytes # 1.3 Monocytes # 0.6 Eosinophils # 0.1 Basophils # 0.1 Nucleated Red Blood Cells # 0.0 Sodium Level 138 Potassium Level 4.2 Chloride Level 105 Carbon Dioxide Level 27 Anion Gap 10 Blood Urea Nitrogen 11 Creatinine 0.84 Glucose Level 148 Calcium Level 8.8 Magnesium Level 1.3 L Test 08/04/17 08:15 08/04/17 12:03 08/04/17 12:03 Bedside Glucose 135 194 Lab Scanned Report REFERENCE LAB Medications Medications Current Medications Ondansetron HCl (Zofran Inj) 4 mg Q6H PRN IV NAUSEA AND/OR VOMITING; Start at 02:00 Diphenhydramine HCl (Benadryl) 25 mg Q8 PO Last administered on 08/04/17 05: 36; Admin Dose 25 MG; Start 07/31/17 at 06:00 Diagnostic Test (Pha) (Accu-Chek) 1 ea 02 XX Last administered on 08/04/17 02 :52; Admin Dose 1 EA; Start 07/31/17 at 02:00 Diagnostic Test (Pha) (Accu-Chek) 1 ea 02 XX Last administered on 08/04/17 02 :52; Admin Dose 1 EA; Start 07/31/17 at 02:00 Miscellaneous Information 1 ea NOTE XX ; Start 07/31/17 at 02:30 Glucose (Glutose) 15 gm Q15M PRN PO DECREASED GLUCOSE; Start 07/31/17 at 02:30 Glucose (Glutose) 22.5 gm Q15M PRN PO DECREASED GLUCOSE; Start 07/31/17 at 02: 30 Dextrose (D50w Syringe) 25 ml Q15M PRN IV DECREASED GLUCOSE; Start 07/31/17 at 02:30 Dextrose (D50w Syringe) 50 ml Q15M PRN IV DECREASED GLUCOSE; Start 07/31/17 at 02:30 Glucagon (Glucagen) 1 mg Q15M PRN IM DECREASED GLUCOSE; Start 07/31/17 at 02: 30 Glucose (Glutose) 15 gm Q15M PRN BUCCAL DECREASED GLUCOSE; Start 07/31/17 at 02:30 Hydralazine HCl (Apresoline) 10 mg Q4H PRN IV SBP > 160; Start 07/31/17 at 06: 30 Lorazepam (Ativan) 2 mg Q1H PRN IV CONTROL WITHDRAWAL SYMPTOMS; Start at 06:30 Lisinopril (Zestril) 10 mg DAILY PO Last administered on 08/04/17 08:16; Admin Dose 10 MG; Start 08/01/17 at 14:00 Chlordiazepoxide (Librium) 10 mg TID PO Last administered on 08/04/17 08:17; Admin Dose 10 MG; Start 08/02/17 at 21:00 Famotidine (Pepcid) 20 mg BID PO Last administered on 08/04/17 08:16; Admin Dose 20 MG; Start 08/03/17 at 00:00 Senna (Senokot) 2 tab BID PO Last administered on 08/04/17 08:16; Admin Dose 2 TAB; Start 08/03/17 at 00:00 Tramadol HCl 50 mg 50 mg Q6H PRN PO PAIN Last administered on 08/04/17 12:11 ; Admin Dose 50 MG; Start 08/04/17 at 06:30 Magnesium Sulfate (Magnesium Sulfate 4 Gm/100 ml) 100 ml @ 25 mls/hr ONCE IVPB ; Start 08/04/17 at 15:00; Stop 08/04/17 at 18:59 Furosemide (Lasix) 20 mg ONCE ONCE PO ; Start 08/04/17 at 15:00; Stop at 15:01; Status SAPNA NASCIMENTO MD Aug 04, 2017 14:58
[2017-08-04] MEDS ORDERED: MAGNESIUM SULFATE 4 GM/100 ML 100 ML IVPB SCH (15:00)
[2017-08-04] MEDS ORDERED: FUROSEMIDE 20 MG TAB PO ONE (15:00)
--- NOTE | 2017-08-04 15:07 | CONS ---
Date/Time of Note Date/Time of Note DATE: 08/04/17 TIME: 14:58 Consult Date/Type/Reason Admit Date/Time Jul 30, 2017 at 23:51 Initial Consult Date 08/04/17 Type of Consultation: Rheum Ordering Provider: BURT QUINTERO MD Subjective No new complaints. Objective Vital Signs Date Time Temp Pulse Resp B/P Pulse Ox O2 Delivery O2 Flow Rate FiO2 08/04/17 08:00 98.6 62 18 113/56 96 Intake and Output 08/03/17 08/03/17 08/04/17 15:00 23:00 07:00 Intake Total 950 ml 2430 ml 1500 ml Output Total 1175 ml Balance 950 ml 2430 ml 325 ml Exam GENERAL: Alert and oriented, no acute distress, pleasant male. HEENT: No acute oral or ocular changes. NECK: Supple. ABDOMEN: Soft, nontender, nondistended. CARDIOVASCULAR: S1, S2, regular rate and rhythm. RESPIRATORY: Clear to auscultation bilaterally. MUSCULOSKELETAL: No synovitis. No clubbing or cyanosis, 1+ lower extremity edema bilaterally. SKIN: Without obvious change. Results/Medications Result Diagram: 08/04/17 0532 08/04/17 0532 Results 24 hrs Laboratory Tests Test 08/03/17 17:35 08/03/17 20:47 08/04/17 02:42 08/04/17 05:32 Bedside Glucose 227 H 192 142 White Blood Count 5.8 # Red Blood Count 3.14 L Hemoglobin 10.8 L Hematocrit 33.1 L Mean Corpuscular Volume 105.4 H Mean Corpuscular Hemoglobin 34.4 H Mean Corpuscular Hemoglobin Concent 32.6 Red Cell Distribution Width 12.4 Platelet Count 117 L Mean Platelet Volume 10.1 Neutrophils % 63.4 Lymphocytes % 22.2 Monocytes % 11.1 H Eosinophils % 2.1 Basophils % 0.9 Nucleated Red Blood Cells % 0.0 Neutrophils # 3.7 Lymphocytes # 1.3 Monocytes # 0.6 Eosinophils # 0.1 Basophils # 0.1 Nucleated Red Blood Cells # 0.0 Sodium Level 138 Potassium Level 4.2 Chloride Level 105 Carbon Dioxide Level 27 Anion Gap 10 Blood Urea Nitrogen 11 Creatinine 0.84 Glucose Level 148 Calcium Level 8.8 Magnesium Level 1.3 L Test 08/04/17 08:15 08/04/17 12:03 08/04/17 12:03 Bedside Glucose 135 194 Lab Scanned Report REFERENCE LAB Medications Current Medications Ondansetron HCl (Zofran Inj) 4 mg Q6H PRN IV NAUSEA AND/OR VOMITING; Start at 02:00 Diphenhydramine HCl (Benadryl) 25 mg Q8 PO Last administered on 08/04/17 05: 36; Admin Dose 25 MG; Start 07/31/17 at 06:00 Diagnostic Test (Pha) (Accu-Chek) 1 ea 02 XX Last administered on 08/04/17 02 :52; Admin Dose 1 EA; Start 07/31/17 at 02:00 Diagnostic Test (Pha) (Accu-Chek) 1 ea 02 XX Last administered on 08/04/17 02 :52; Admin Dose 1 EA; Start 07/31/17 at 02:00 Miscellaneous Information 1 ea NOTE XX ; Start 07/31/17 at 02:30 Glucose (Glutose) 15 gm Q15M PRN PO DECREASED GLUCOSE; Start 07/31/17 at 02:30 Glucose (Glutose) 22.5 gm Q15M PRN PO DECREASED GLUCOSE; Start 07/31/17 at 02: 30 Dextrose (D50w Syringe) 25 ml Q15M PRN IV DECREASED GLUCOSE; Start 07/31/17 at 02:30 Dextrose (D50w Syringe) 50 ml Q15M PRN IV DECREASED GLUCOSE; Start 07/31/17 at 02:30 Glucagon (Glucagen) 1 mg Q15M PRN IM DECREASED GLUCOSE; Start 07/31/17 at 02: 30 Glucose (Glutose) 15 gm Q15M PRN BUCCAL DECREASED GLUCOSE; Start 07/31/17 at 02:30 Hydralazine HCl (Apresoline) 10 mg Q4H PRN IV SBP > 160; Start 07/31/17 at 06: 30 Lorazepam (Ativan) 2 mg Q1H PRN IV CONTROL WITHDRAWAL SYMPTOMS; Start at 06:30 Lisinopril (Zestril) 10 mg DAILY PO Last administered on 08/04/17 08:16; Admin Dose 10 MG; Start 08/01/17 at 14:00 Chlordiazepoxide (Librium) 10 mg TID PO Last administered on 08/04/17 08:17; Admin Dose 10 MG; Start 08/02/17 at 21:00 Famotidine (Pepcid) 20 mg BID PO Last administered on 08/04/17 08:16; Admin Dose 20 MG; Start 08/03/17 at 00:00 Senna (Senokot) 2 tab BID PO Last administered on 08/04/17 08:16; Admin Dose 2 TAB; Start 08/03/17 at 00:00 Tramadol HCl 50 mg 50 mg Q6H PRN PO PAIN Last administered on 08/04/17 12:11 ; Admin Dose 50 MG; Start 08/04/17 at 06:30 Magnesium Sulfate (Magnesium Sulfate 4 Gm/100 ml) 100 ml @ 25 mls/hr ONCE IVPB ; Start 08/04/17 at 15:00; Stop 08/04/17 at 18:59 Furosemide (Lasix) 20 mg ONCE ONCE PO ; Start 08/04/17 at 15:00; Stop at 15:01; Status UNV Assessment/Plan Chief Complaint/Hosp Course ASS. 1. Rash. Consistent with leukocytoclastic vasculitis. Unclear etiology. No evidence of a systemic autoimmune chronic condition. 2. Cervical spine disease 3. L1-L2 transverse process fracture from fall 4. Hypertension 5. Diabetes 6. Hyperlipidemia 7. ETOH abuse. PLAN 1. Continue present evaluation. 2. Consider skin biopsy as outpatient. Problems: TAYLOR ANTOINE MD Aug 04, 2017 15:07
[2017-08-04 20:00] VITALS: BP 140/84; PULSE 101; RESP 20
[2017-08-05 02:00] VITALS: BP 128/77; RESP 20
[2017-08-05] MEDS: ACCU-CHEK XX SCH ×2 (02:00)
[2017-08-05] MEDS: DIPHENHYDRAMINE 25 MG CAP PO SCH ×3 (06:00→21:26)
[2017-08-05 08:00] VITALS: BP 120/59; RESP 18
[2017-08-05] MEDS: INSULIN ASPART [NOVOLOG] 3 ML PEN SC SCH ×4 (08:00→20:22)
[2017-08-05] MEDS: CHLORDIAZEPOXIDE 5 MG CAP PO SCH ×3 (08:28→20:19)
[2017-08-05] MEDS: metFORMIN 500 MG TAB PO SCH ×2 (08:28→17:27)
[2017-08-05] MEDS: FAMOTIDINE 20 MG TAB PO SCH ×2 (08:28→20:19)
[2017-08-05] MEDS: SENNA TAB PO SCH ×2 (08:29→20:20)
[2017-08-05] MEDS: LISINOPRIL 10 MG TAB PO SCH (08:31)
[2017-08-05] MEDS ORDERED: POTASSIUM CHLORIDE (SR) 20 MEQ TAB PO STA (13:42)
--- NOTE | 2017-08-05 13:46 | PN ---
Date/Time of Note Date/Time of Note DATE: 08/05/17 TIME: 13:44 Assessment/Plan VTE Prophylaxis VTE Prophylaxis Intervention: heparin Lines/Catheters IV Catheter Type (from Nrs): [facility] Urinary Cath still in place: No Assessment/Plan Problems: (1) Leukocytoclastic vasculitis Status: Acute Comment: 1 dose IV Solu-Medrol to see if we can help his symptoms. Rheumatology is involved in the case (2) Fracture of L2 vertebra Status: Acute Comment: Spinous process fracture. He will need placement. Social work is working on that Qualifiers: Encounter type: initial encounter Fracture type: closed Fracture morphology: other fracture Qualified Code: S32.028A - Other closed fracture of second lumbar vertebra, initial encounter (3) Diabetes mellitus type 2 in nonobese Status: Chronic Comment: Continue therapeutics (4) Alcoholism /alcohol abuse Status: Chronic Comment: He is past the point were worried about DTs or withdrawal Subjective 24 Hr Interval Summary Free Text/Dictation Patient complains of lower extremity edema and allodynic pain. Respiratory: no complaints Cardiovascular: no complaints Gastrointestinal: no complaints Exam/Review of Systems Vital Signs Vitals Vital Signs Date Time Temp Pulse Resp B/P Pulse Ox O2 Delivery O2 Flow Rate FiO2 08/05/17 02:00 97.5 107 20 128/77 97 08/04/17 20:00 Room Air Intake and Output 08/04/17 08/04/17 08/05/17 15:00 23:00 07:00 Intake Total 1000 ml 950 ml 720 ml Balance 1000 ml 950 ml 720 ml Exam Constitutional: alert, oriented Respiratory: clear to auscultation, normal air movement Cardiovascular: nl pulses, regular rate and rhythm Extremities: edema, other (Evidence of the previously mentioned leukocytoclastic vasculitis) Results Result Diagram: 08/04/17 0532 08/05/17 0508 Results 24 hrs Laboratory Tests Test 08/04/17 17:37 08/04/17 21:50 08/05/17 05:08 08/05/17 08:33 Bedside Glucose 135 156 138 Sodium Level 135 Potassium Level 4.0 Chloride Level 98 Carbon Dioxide Level 28 Anion Gap 13 Blood Urea Nitrogen 10 Creatinine 0.84 Glucose Level 143 Calcium Level 8.7 Magnesium Level 1.5 L Test 08/05/17 12:14 Bedside Glucose 188 Medications Medications Current Medications Ondansetron HCl (Zofran Inj) 4 mg Q6H PRN IV NAUSEA AND/OR VOMITING; Start at 02:00 Diphenhydramine HCl (Benadryl) 25 mg Q8 PO Last administered on 08/04/17 21: 53; Admin Dose 25 MG; Start 07/31/17 at 06:00 Diagnostic Test (Pha) (Accu-Chek) 1 ea 02 XX Last administered on 08/04/17 02 :52; Admin Dose 1 EA; Start 07/31/17 at 02:00 Diagnostic Test (Pha) (Accu-Chek) 1 ea 02 XX Last administered on 08/04/17 02 :52; Admin Dose 1 EA; Start 07/31/17 at 02:00 Miscellaneous Information 1 ea NOTE XX ; Start 07/31/17 at 02:30 Glucose (Glutose) 15 gm Q15M PRN PO DECREASED GLUCOSE; Start 07/31/17 at 02:30 Glucose (Glutose) 22.5 gm Q15M PRN PO DECREASED GLUCOSE; Start 07/31/17 at 02: 30 Dextrose (D50w Syringe) 25 ml Q15M PRN IV DECREASED GLUCOSE; Start 07/31/17 at 02:30 Dextrose (D50w Syringe) 50 ml Q15M PRN IV DECREASED GLUCOSE; Start 07/31/17 at 02:30 Glucagon (Glucagen) 1 mg Q15M PRN IM DECREASED GLUCOSE; Start 07/31/17 at 02: 30 Glucose (Glutose) 15 gm Q15M PRN BUCCAL DECREASED GLUCOSE; Start 07/31/17 at 02:30 Hydralazine HCl (Apresoline) 10 mg Q4H PRN IV SBP > 160; Start 07/31/17 at 06: 30 Lorazepam (Ativan) 2 mg Q1H PRN IV CONTROL WITHDRAWAL SYMPTOMS; Start at 06:30 Lisinopril (Zestril) 10 mg DAILY PO Last administered on 08/05/17 08:31; Admin Dose 10 MG; Start 08/01/17 at 14:00 Chlordiazepoxide (Librium) 10 mg TID PO Last administered on 08/05/17 12:13; Admin Dose 10 MG; Start 08/02/17 at 21:00 Famotidine (Pepcid) 20 mg BID PO Last administered on 08/05/17 08:28; Admin Dose 20 MG; Start 08/03/17 at 00:00 Senna (Senokot) 2 tab BID PO Last administered on 08/05/17 08:29; Admin Dose 2 TAB; Start 08/03/17 at 00:00 Tramadol HCl (Ultram) 50 mg Q6H PRN PO PAIN Last administered on 08/04/17 12: 11; Admin Dose 50 MG; Start 08/04/17 at 06:30 YING SWANSON MD Aug 05, 2017 13:46
[2017-08-05 14:00] VITALS: BP 133/66; RESP 20
[2017-08-05] MEDS ORDERED: METHYLPREDNISOLONE 40 MG INJ IV ONE (14:00)
[2017-08-05] MEDS ORDERED: FUROSEMIDE 40 MG INJ IV ONE (14:00)
--- NOTE | 2017-08-05 14:02 | CONS ---
Date/Time of Note Date/Time of Note DATE: 08/05/17 TIME: 13:57 Consult Date/Type/Reason Admit Date/Time Jul 30, 2017 at 23:51 Initial Consult Date 08/04/17 Type of Consultation: Rheum Subjective No new complaints. Some ache at feet. No pruritus. Just received Solumedrol 40 mg IV. Objective Vital Signs Date Time Temp Pulse Resp B/P Pulse Ox O2 Delivery O2 Flow Rate FiO2 08/05/17 02:00 97.5 107 20 128/77 97 08/04/17 20:00 Room Air Intake and Output 08/04/17 08/04/17 08/05/17 15:00 23:00 07:00 Intake Total 1000 ml 950 ml 720 ml Balance 1000 ml 950 ml 720 ml Exam GENERAL: Alert and oriented, no acute distress. SKIN: Without obvious change. HEENT: No acute oral or ocular changes. NECK: Supple. RESPIRATORY: Clear to auscultation bilaterally. CARDIOVASCULAR: S1, S2, regular rate and rhythm. ABDOMEN: Soft, nontender, nondistended. MUSCULOSKELETAL: No synovitis. No clubbing or cyanosis, 1+ lower extremity edema bilaterally. Mild tenderness at feet and ankles bilat. . Results/Medications Result Diagram: 08/04/17 0532 08/05/17 0508 Results 24 hrs Laboratory Tests Test 08/04/17 17:37 08/04/17 21:50 08/05/17 05:08 08/05/17 08:33 Bedside Glucose 135 156 138 Sodium Level 135 Potassium Level 4.0 Chloride Level 98 Carbon Dioxide Level 28 Anion Gap 13 Blood Urea Nitrogen 10 Creatinine 0.84 Glucose Level 143 Calcium Level 8.7 Magnesium Level 1.5 L Test 08/05/17 12:14 Bedside Glucose 188 Medications Current Medications Ondansetron HCl (Zofran Inj) 4 mg Q6H PRN IV NAUSEA AND/OR VOMITING; Start at 02:00 Diphenhydramine HCl (Benadryl) 25 mg Q8 PO Last administered on 08/04/17 21: 53; Admin Dose 25 MG; Start 07/31/17 at 06:00 Diagnostic Test (Pha) (Accu-Chek) 1 ea 02 XX Last administered on 08/04/17 02 :52; Admin Dose 1 EA; Start 07/31/17 at 02:00 Diagnostic Test (Pha) (Accu-Chek) 1 ea 02 XX Last administered on 08/04/17 02 :52; Admin Dose 1 EA; Start 07/31/17 at 02:00 Miscellaneous Information 1 ea NOTE XX ; Start 07/31/17 at 02:30 Glucose (Glutose) 15 gm Q15M PRN PO DECREASED GLUCOSE; Start 07/31/17 at 02:30 Glucose (Glutose) 22.5 gm Q15M PRN PO DECREASED GLUCOSE; Start 07/31/17 at 02: 30 Dextrose (D50w Syringe) 25 ml Q15M PRN IV DECREASED GLUCOSE; Start 07/31/17 at 02:30 Dextrose (D50w Syringe) 50 ml Q15M PRN IV DECREASED GLUCOSE; Start 07/31/17 at 02:30 Glucagon (Glucagen) 1 mg Q15M PRN IM DECREASED GLUCOSE; Start 07/31/17 at 02: 30 Glucose (Glutose) 15 gm Q15M PRN BUCCAL DECREASED GLUCOSE; Start 07/31/17 at 02:30 Hydralazine HCl (Apresoline) 10 mg Q4H PRN IV SBP > 160; Start 07/31/17 at 06: 30 Lorazepam (Ativan) 2 mg Q1H PRN IV CONTROL WITHDRAWAL SYMPTOMS; Start at 06:30 Lisinopril (Zestril) 10 mg DAILY PO Last administered on 08/05/17 08:31; Admin Dose 10 MG; Start 08/01/17 at 14:00 Chlordiazepoxide (Librium) 10 mg TID PO Last administered on 08/05/17 12:13; Admin Dose 10 MG; Start 08/02/17 at 21:00 Famotidine (Pepcid) 20 mg BID PO Last administered on 08/05/17 08:28; Admin Dose 20 MG; Start 08/03/17 at 00:00 Senna (Senokot) 2 tab BID PO Last administered on 08/05/17 08:29; Admin Dose 2 TAB; Start 08/03/17 at 00:00 Tramadol HCl (Ultram) 50 mg Q6H PRN PO PAIN Last administered on 08/04/17 12: 11; Admin Dose 50 MG; Start 08/04/17 at 06:30 Methylprednisolone Sodium Succinate (Solu-Medrol) 40 mg ONCE ONCE IV ; Start 08/05/17 at 14:00; Stop 08/05/17 at 14:01 Furosemide (Lasix) 40 mg ONCE ONCE IV ; Start 08/05/17 at 14:00; Stop at 14:01 Assessment/Plan Chief Complaint/Hosp Course ASS. 1. Rash. Consistent with leukocytoclastic vasculitis. Unclear etiology. No evidence of a systemic autoimmune chronic condition. 2. Cervical spine disease 3. L1-L2 transverse process fracture from fall 4. Hypertension 5. Diabetes 6. Hyperlipidemia 7. ETOH abuse. PLAN 1. Continue present evaluation. 2. Consider skin biopsy as outpatient. Problems: TAYLOR ANTOINE MD Aug 05, 2017 14:02
--- NOTE | 2017-08-05 18:14 | CONS ---
Date/Time of Note Date/Time of Note DATE: 08/05/17 TIME: 18:13 Assessment/Plan Assessment/Plan Chief Complaint/Hosp Course Assessment: Recurrent syncope - cardiac work up unrevealing, suspect secondary to hypoglycemia and/or alcohol intoxication Hypertension Dyslipidemia Diabetes mellitus - glipizide has been changed to metformin, which will decrease risk for hypoglycemia Gout Cervical spine degenerative disc disease L1-L2 transverse process fracture - per primary team Alcohol abuse - advised cessation Rash - per rheumatology Recommendations: -recent EKG normal -current echocardiogram showed normal LVEF 60-65%, no significant valve disease -carotid Dopplers without obstructive disease -no additional cardiac work up at this time -continue lisinopril 10mg daily -resume on statin Problems: Consultation Date/Type/Reason Admit Date/Time Jul 30, 2017 at 23:51 Initial Consult Date 08/04/17 Type of Consultation: Cardiology 24 HR Interval Summary Free Text/Dictation No acute events. No further syncope. No hypoglycemia. Detailed Summary Additional Comments 14 point review of systems without changes. Exam/Review of Systems Vital Signs Vitals Vital Signs Date Time Temp Pulse Resp B/P Pulse Ox O2 Delivery O2 Flow Rate FiO2 08/05/17 14:00 98.8 100 20 133/66 98 08/04/17 20:00 Room Air Intake and Output 08/04/17 08/04/17 08/05/17 15:00 23:00 07:00 Intake Total 1000 ml 950 ml 720 ml Balance 1000 ml 950 ml 720 ml Exam Constitutional: alert, well developed Psych: nl mood/affect, no complaints Head: atraumatic, normocephalic Eyes: nl conjunctiva, nl lids ENMT: nl external ears & nose, nl nasal mucosa & septum Neck: non-tender, supple, No jvd Respiratory: clear to auscultation, normal air movement Cardiovascular: regular rate and rhythm, No murmurs/extra sounds Gastrointestinal: non-tender, soft Musculoskeletal: nl extremities to inspection Extremities: No clubbing, No cyanosis, No edema 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: nl mental status, nl speech Skin: rash Results Result Diagram: 08/04/17 0532 08/05/17 0508 Results 24 hrs Laboratory Tests Test 08/04/17 21:50 08/05/17 05:08 08/05/17 08:33 08/05/17 12:14 Bedside Glucose 156 138 188 Sodium Level 135 Potassium Level 4.0 Chloride Level 98 Carbon Dioxide Level 28 Anion Gap 13 Blood Urea Nitrogen 10 Creatinine 0.84 Glucose Level 143 Calcium Level 8.7 Magnesium Level 1.5 L Test 08/05/17 17:28 Bedside Glucose 187 Medications Medications Current Medications Ondansetron HCl (Zofran Inj) 4 mg Q6H PRN IV NAUSEA AND/OR VOMITING; Start at 02:00 Diphenhydramine HCl (Benadryl) 25 mg Q8 PO Last administered on 08/05/17 15: 07; Admin Dose 25 MG; Start 07/31/17 at 06:00 Diagnostic Test (Pha) (Accu-Chek) 1 ea 02 XX Last administered on 08/04/17 02 :52; Admin Dose 1 EA; Start 07/31/17 at 02:00 Diagnostic Test (Pha) (Accu-Chek) 1 ea 02 XX Last administered on 08/04/17 02 :52; Admin Dose 1 EA; Start 07/31/17 at 02:00 Miscellaneous Information 1 ea NOTE XX ; Start 07/31/17 at 02:30 Glucose (Glutose) 15 gm Q15M PRN PO DECREASED GLUCOSE; Start 07/31/17 at 02:30 Glucose (Glutose) 22.5 gm Q15M PRN PO DECREASED GLUCOSE; Start 07/31/17 at 02: 30 Dextrose (D50w Syringe) 25 ml Q15M PRN IV DECREASED GLUCOSE; Start 07/31/17 at 02:30 Dextrose (D50w Syringe) 50 ml Q15M PRN IV DECREASED GLUCOSE; Start 07/31/17 at 02:30 Glucagon (Glucagen) 1 mg Q15M PRN IM DECREASED GLUCOSE; Start 07/31/17 at 02: 30 Glucose (Glutose) 15 gm Q15M PRN BUCCAL DECREASED GLUCOSE; Start 07/31/17 at 02:30 Hydralazine HCl (Apresoline) 10 mg Q4H PRN IV SBP > 160; Start 07/31/17 at 06: 30 Lorazepam (Ativan) 2 mg Q1H PRN IV CONTROL WITHDRAWAL SYMPTOMS; Start at 06:30 Lisinopril (Zestril) 10 mg DAILY PO Last administered on 08/05/17 08:31; Admin Dose 10 MG; Start 08/01/17 at 14:00 Chlordiazepoxide (Librium) 10 mg TID PO Last administered on 08/05/17 12:13; Admin Dose 10 MG; Start 08/02/17 at 21:00 Famotidine (Pepcid) 20 mg BID PO Last administered on 08/05/17 08:28; Admin Dose 20 MG; Start 08/03/17 at 00:00 Senna (Senokot) 2 tab BID PO Last administered on 08/05/17 08:29; Admin Dose 2 TAB; Start 08/03/17 at 00:00 Tramadol HCl (Ultram) 50 mg Q6H PRN PO PAIN Last administered on 08/04/17 12: 11; Admin Dose 50 MG; Start 08/04/17 at 06:30 SAPNA JIMENEZ MD Aug 05, 2017 18:14
[2017-08-05 20:00] VITALS: BP 120/73; RESP 20
[2017-08-05] MEDS ORDERED: INSULIN ASPART [NOVOLOG] 3 ML PEN SC STA (20:23)
[2017-08-06] MEDS: ACCU-CHEK XX SCH ×2 (01:47)
[2017-08-06 02:00] VITALS: BP 115/70; RESP 20
[2017-08-06] MEDS: DIPHENHYDRAMINE 25 MG CAP PO SCH ×3 (05:26→21:20)
[2017-08-06 08:00] VITALS: BP 118/75; RESP 19
[2017-08-06] MEDS: metFORMIN 500 MG TAB PO SCH ×2 (08:06→16:59)
[2017-08-06] MEDS: INSULIN ASPART [NOVOLOG] 3 ML PEN SC SCH ×4 (08:22→20:17)
[2017-08-06] MEDS: SENNA TAB PO SCH ×2 (09:00→20:18)
[2017-08-06] MEDS: LISINOPRIL 10 MG TAB PO SCH (09:42)
[2017-08-06] MEDS: CHLORDIAZEPOXIDE 5 MG CAP PO SCH ×3 (09:42→20:17)
[2017-08-06] MEDS: FAMOTIDINE 20 MG TAB PO SCH ×2 (09:42→20:17)
--- NOTE | 2017-08-06 10:58 | PN ---
Date/Time of Note Date/Time of Note DATE: 08/06/17 TIME: 10:55 Assessment/Plan VTE Prophylaxis VTE Prophylaxis Intervention: heparin Lines/Catheters IV [facility]from [facility] Urinary Cath still in place: No Assessment/Plan Problems: (1) Snores Status: Chronic Comment: Based on my observation I believe this patient probably does indeed have obstructive sleep apnea. He will need an outpatient evaluation for this which would have a significant beneficial impact on his quality of life. This of course assumes cooperation and compliance (2) Fracture of L2 vertebra Status: Acute Comment: Noted. Awaiting social work to assist with discharge planning Qualifiers: Encounter type: initial encounter Fracture type: closed Fracture morphology: other fracture Qualified Code: S32.028A - Other closed fracture of second lumbar vertebra, initial encounter (3) Diabetes mellitus type 2 in nonobese Status: Chronic Comment: Good control, until 1 dose of steroids. This will tail back into normal range in the next 72 hours. No adjustment in regimen (4) Leukocytoclastic vasculitis Status: Acute Comment: Responding to treatment (5) Alcoholism /alcohol abuse Status: Chronic Comment: Noted. Subjective 24 Hr Interval Summary Free Text/Dictation Patient sleeping in bed please see description reports still with leg pain but it has improved. Please note he does not have an established relationship with a primary care physician Constitutional: no complaints Respiratory: no complaints Cardiovascular: no complaints Gastrointestinal: no complaints Genitourinary: no complaints Exam/Review of Systems Vital Signs Vitals Vital Signs Date Time Temp Pulse Resp B/P Pulse Ox O2 Delivery O2 Flow Rate FiO2 08/06/17 08:00 97.4 86 19 118/75 98 08/04/17 20:00 Room Air Intake and Output 08/05/17 08/05/17 08/06/17 15:00 23:00 07:00 Intake Total 550 ml Balance 550 ml Exam Patient asleep and snoring with witnessed apneic spells consistent with obstructive sleep apnea Neck: non-tender, supple Respiratory: clear to auscultation, normal air movement Cardiovascular: nl pulses, regular rate and rhythm Gastrointestinal: nl liver, spleen, non-tender, soft Extremities: other (No change) Results Result Diagram: 08/04/17 0532 08/05/17 0508 Results 24 hrs Laboratory Tests Test 08/05/17 12:14 08/05/17 17:28 08/05/17 20:18 08/05/17 21:24 Bedside Glucose 188 187 329 H 275 H Test 08/06/17 01:32 08/06/17 08:17 Bedside Glucose 270 H 259 H Medications Medications Current Medications Ondansetron HCl (Zofran Inj) 4 mg Q6H PRN IV NAUSEA AND/OR VOMITING; Start at 02:00 Diphenhydramine HCl (Benadryl) 25 mg Q8 PO Last administered on 08/05/17 21: 26; Admin Dose 25 MG; Start 07/31/17 at 06:00 Diagnostic Test (Pha) (Accu-Chek) 1 ea 02 XX Last administered on 08/06/17 01 :47; Admin Dose 1 EA; Start 07/31/17 at 02:00 Diagnostic Test (Pha) (Accu-Chek) 1 ea 02 XX Last administered on 08/04/17 02 :52; Admin Dose 1 EA; Start 07/31/17 at 02:00 Miscellaneous Information 1 ea NOTE XX ; Start 07/31/17 at 02:30 Glucose (Glutose) 15 gm Q15M PRN PO DECREASED GLUCOSE; Start 07/31/17 at 02:30 Glucose (Glutose) 22.5 gm Q15M PRN PO DECREASED GLUCOSE; Start 07/31/17 at 02: 30 Dextrose (D50w Syringe) 25 ml Q15M PRN IV DECREASED GLUCOSE; Start 07/31/17 at 02:30 Dextrose (D50w Syringe) 50 ml Q15M PRN IV DECREASED GLUCOSE; Start 07/31/17 at 02:30 Glucagon (Glucagen) 1 mg Q15M PRN IM DECREASED GLUCOSE; Start 07/31/17 at 02: 30 Glucose (Glutose) 15 gm Q15M PRN BUCCAL DECREASED GLUCOSE; Start 07/31/17 at 02:30 Hydralazine HCl (Apresoline) 10 mg Q4H PRN IV SBP > 160; Start 07/31/17 at 06: 30 Lorazepam (Ativan) 2 mg Q1H PRN IV CONTROL WITHDRAWAL SYMPTOMS; Start at 06:30 Lisinopril (Zestril) 10 mg DAILY PO Last administered on 08/06/17 09:42; Admin Dose 10 MG; Start 08/01/17 at 14:00 Chlordiazepoxide (Librium) 10 mg TID PO Last administered on 08/06/17 09:42; Admin Dose 10 MG; Start 08/02/17 at 21:00 Famotidine (Pepcid) 20 mg BID PO Last administered on 08/06/17 09:42; Admin Dose 20 MG; Start 08/03/17 at 00:00 Senna (Senokot) 2 tab BID PO Last administered on 08/05/17 08:29; Admin Dose 2 TAB; Start 08/03/17 at 00:00 Tramadol HCl (Ultram) 50 mg Q6H PRN PO PAIN Last administered on 08/04/17 12: 11; Admin Dose 50 MG; Start 08/04/17 at 06:30 YING SWANSON MD Aug 06, 2017 10:58
[2017-08-06 14:00] VITALS: BP 149/83; RESP 17
--- NOTE | 2017-08-06 18:58 | CONS ---
Date/Time of Note Date/Time of Note DATE: 08/06/17 TIME: 18:57 Assessment/Plan Assessment/Plan Chief Complaint/Hosp Course Assessment: Recurrent syncope - cardiac work up unrevealing, suspect secondary to hypoglycemia and/or alcohol intoxication Hypertension Dyslipidemia Diabetes mellitus - glipizide has been changed to metformin, which will decrease risk for hypoglycemia Gout Cervical spine degenerative disc disease L1-L2 transverse process fracture - per primary team Alcohol abuse - advised cessation Rash - per rheumatology Recommendations: -recent EKG normal -current echocardiogram showed normal LVEF 60-65%, no significant valve disease -carotid Dopplers without obstructive disease -no additional cardiac work up at this time -continue lisinopril 10mg daily -resume on statin Problems: Consultation Date/Type/Reason Admit Date/Time Jul 30, 2017 at 23:51 Initial Consult Date 08/04/17 Type of Consultation: Cardiology 24 HR Interval Summary Free Text/Dictation No acute events. Detailed Summary Additional Comments 14 point review of systems without changes. Exam/Review of Systems Vital Signs Vitals Vital Signs Date Time Temp Pulse Resp B/P Pulse Ox O2 Delivery O2 Flow Rate FiO2 08/06/17 14:00 98.5 65 17 149/83 94 08/04/17 20:00 Room Air Intake and Output 08/05/17 08/05/17 08/06/17 15:00 23:00 07:00 Intake Total 550 ml Balance 550 ml Exam Constitutional: alert, well developed Psych: nl mood/affect, no complaints Head: atraumatic, normocephalic Eyes: nl conjunctiva, nl lids ENMT: nl external ears & nose, nl nasal mucosa & septum Neck: non-tender, supple, No jvd Respiratory: clear to auscultation, normal air movement Cardiovascular: regular rate and rhythm, No murmurs/extra sounds Gastrointestinal: non-tender, soft Musculoskeletal: nl extremities to inspection Extremities: No clubbing, No cyanosis, No edema 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: nl mental status, nl speech Skin: rash Results Result Diagram: 08/04/17 0532 08/05/17 0508 Results 24 hrs Laboratory Tests Test 08/05/17 20:18 08/05/17 21:24 08/06/17 01:32 08/06/17 08:17 Bedside Glucose 329 H 275 H 270 H 259 H Test 08/06/17 12:26 08/06/17 17:00 Bedside Glucose 221 H 195 Medications Medications Current Medications Ondansetron HCl (Zofran Inj) 4 mg Q6H PRN IV NAUSEA AND/OR VOMITING; Start at 02:00 Diphenhydramine HCl (Benadryl) 25 mg Q8 PO Last administered on 08/06/17 14: 39; Admin Dose 25 MG; Start 07/31/17 at 06:00 Diagnostic Test (Pha) (Accu-Chek) 1 ea 02 XX Last administered on 08/06/17 01 :47; Admin Dose 1 EA; Start 07/31/17 at 02:00 Diagnostic Test (Pha) (Accu-Chek) 1 ea 02 XX Last administered on 08/04/17 02 :52; Admin Dose 1 EA; Start 07/31/17 at 02:00 Miscellaneous Information 1 ea NOTE XX ; Start 07/31/17 at 02:30 Glucose (Glutose) 15 gm Q15M PRN PO DECREASED GLUCOSE; Start 07/31/17 at 02:30 Glucose (Glutose) 22.5 gm Q15M PRN PO DECREASED GLUCOSE; Start 07/31/17 at 02: 30 Dextrose (D50w Syringe) 25 ml Q15M PRN IV DECREASED GLUCOSE; Start 07/31/17 at 02:30 Dextrose (D50w Syringe) 50 ml Q15M PRN IV DECREASED GLUCOSE; Start 07/31/17 at 02:30 Glucagon (Glucagen) 1 mg Q15M PRN IM DECREASED GLUCOSE; Start 07/31/17 at 02: 30 Glucose (Glutose) 15 gm Q15M PRN BUCCAL DECREASED GLUCOSE; Start 07/31/17 at 02:30 Hydralazine HCl (Apresoline) 10 mg Q4H PRN IV SBP > 160; Start 07/31/17 at 06: 30 Lorazepam (Ativan) 2 mg Q1H PRN IV CONTROL WITHDRAWAL SYMPTOMS; Start at 06:30 Lisinopril (Zestril) 10 mg DAILY PO Last administered on 08/06/17 09:42; Admin Dose 10 MG; Start 08/01/17 at 14:00 Chlordiazepoxide (Librium) 10 mg TID PO Last administered on 08/06/17 12:25; Admin Dose 10 MG; Start 08/02/17 at 21:00 Famotidine (Pepcid) 20 mg BID PO Last administered on 08/06/17 09:42; Admin Dose 20 MG; Start 08/03/17 at 00:00 Senna (Senokot) 2 tab BID PO Last administered on 08/05/17 08:29; Admin Dose 2 TAB; Start 08/03/17 at 00:00 Tramadol HCl (Ultram) 50 mg Q6H PRN PO PAIN Last administered on 08/04/17 12: 11; Admin Dose 50 MG; Start 08/04/17 at 06:30 SAPNA JIMENEZ MD Aug 06, 2017 18:58
[2017-08-06 21:13] VITALS: BP 114/77; RESP 18
[2017-08-07] MEDS: ACCU-CHEK XX SCH ×2 (02:00→02:13)
[2017-08-07 03:32] VITALS: BP 113/56; RESP 18
[2017-08-07] MEDS: DIPHENHYDRAMINE 25 MG CAP PO SCH ×2 (05:20→14:59)
[2017-08-07 07:21] VITALS: BP 130/79; RESP 18
[2017-08-07] MEDS: CHLORDIAZEPOXIDE 5 MG CAP PO SCH ×3 (08:17→21:07)
[2017-08-07] MEDS: metFORMIN 500 MG TAB PO SCH ×2 (08:17→18:19)
[2017-08-07] MEDS: FAMOTIDINE 20 MG TAB PO SCH (08:17)
[2017-08-07] MEDS: LISINOPRIL 10 MG TAB PO SCH (08:18)
[2017-08-07] MEDS: SENNA TAB PO SCH ×2 (08:18→21:08)
[2017-08-07] MEDS: INSULIN ASPART [NOVOLOG] 3 ML PEN SC SCH ×4 (08:19→21:18)
--- NOTE | 2017-08-07 13:55 | CONS ---
Date/Time of Note Date/Time of Note DATE: 08/07/17 TIME: 13:52 Consult Date/Type/Reason Admit Date/Time Jul 30, 2017 at 23:51 Initial Consult Date 08/04/17 Type of Consultation: Rheumatology Subjective GENERAL: Alert and oriented, no acute distress, pleasant male. HEENT: No acute oral or ocular changes. NECK: Supple. ABDOMEN: Soft, nontender, nondistended. CARDIOVASCULAR: S1, S2, regular rate and rhythm. RESPIRATORY: Clear to auscultation bilaterally. MUSCULOSKELETAL: No synovitis. No clubbing or cyanosis, 1+ lower extremity edema bilaterally. SKIN:Significant improvement in [place] Objective Vital Signs Date Time Temp Pulse Resp B/P Pulse Ox O2 Delivery O2 Flow Rate FiO2 08/07/17 07:21 97.9 76 18 130/79 97 08/04/17 20:00 Room Air Intake and Output 08/06/17 08/06/17 08/07/17 14:59 22:59 06:59 Intake Total 1260 ml 550 ml Balance 1260 ml 550 ml Results/Medications Result Diagram: 08/04/17 0532 08/05/17 0508 Results 24 hrs Laboratory Tests Test 08/06/17 17:00 08/06/17 20:16 08/07/17 01:48 08/07/17 07:55 Bedside Glucose 195 196 209 151 Test 08/07/17 12:02 08/07/17 12:04 Bedside Glucose 158 Hemoglobin A1c 6.8 H Medications Current Medications Ondansetron HCl (Zofran Inj) 4 mg Q6H PRN IV NAUSEA AND/OR VOMITING; Start at 02:00 Diphenhydramine HCl (Benadryl) 25 mg Q8 PO Last administered on 08/06/17 21: 20; Admin Dose 25 MG; Start 07/31/17 at 06:00 Diagnostic Test (Pha) (Accu-Chek) 1 ea 02 XX Last administered on 08/07/17 02 :13; Admin Dose 1 EA; Start 07/31/17 at 02:00 Diagnostic Test (Pha) (Accu-Chek) 1 ea 02 XX Last administered on 08/04/17 02 :52; Admin Dose 1 EA; Start 07/31/17 at 02:00 Miscellaneous Information 1 ea NOTE XX ; Start 07/31/17 at 02:30 Glucose (Glutose) 15 gm Q15M PRN PO DECREASED GLUCOSE; Start 07/31/17 at 02:30 Glucose (Glutose) 22.5 gm Q15M PRN PO DECREASED GLUCOSE; Start 07/31/17 at 02: 30 Dextrose (D50w Syringe) 25 ml Q15M PRN IV DECREASED GLUCOSE; Start 07/31/17 at 02:30 Dextrose (D50w Syringe) 50 ml Q15M PRN IV DECREASED GLUCOSE; Start 07/31/17 at 02:30 Glucagon (Glucagen) 1 mg Q15M PRN IM DECREASED GLUCOSE; Start 07/31/17 at 02: 30 Glucose (Glutose) 15 gm Q15M PRN BUCCAL DECREASED GLUCOSE; Start 07/31/17 at 02:30 Hydralazine HCl (Apresoline) 10 mg Q4H PRN IV SBP > 160; Start 07/31/17 at 06: 30 Lorazepam (Ativan) 2 mg Q1H PRN IV CONTROL WITHDRAWAL SYMPTOMS; Start at 06:30 Lisinopril (Zestril) 10 mg DAILY PO Last administered on 08/07/17 08:18; Admin Dose 10 MG; Start 08/01/17 at 14:00 Chlordiazepoxide (Librium) 10 mg TID PO Last administered on 08/07/17 12:03; Admin Dose 10 MG; Start 08/02/17 at 21:00 Famotidine (Pepcid) 20 mg BID PO Last administered on 08/07/17 08:17; Admin Dose 20 MG; Start 08/03/17 at 00:00 Senna (Senokot) 2 tab BID PO Last administered on 08/05/17 08:29; Admin Dose 2 TAB; Start 08/03/17 at 00:00 Tramadol HCl (Ultram) 50 mg Q6H PRN PO PAIN Last administered on 08/04/17 12: 11; Admin Dose 50 MG; Start 08/04/17 at 06:30 Assessment/Plan Chief Complaint/Hosp Course 1. Rash. Consistent with leukocytoclastic vasculitis. Unclear etiology. No evidence of a systemic autoimmune chronic condition. Significant improvement after one dose of IV solumedrol. No need for further intervention 2. Cervical spine disease 3. L1-L2 transverse process fracture from fall 4. Hypertension 5. Diabetes 6. Hyperlipidemia 7. ETOH abuse. Problems: DEVANG GIRALDO MD Aug 07, 2017 13:55
[2017-08-07 16:08] VITALS: BP 131/75; RESP 18
--- NOTE | 2017-08-07 16:39 | PN ---
Date/Time of Note Date/Time of Note DATE: 08/07/17 TIME: 16:33 Assessment/Plan VTE Prophylaxis VTE Prophylaxis Intervention: SCD's Lines/Catheters IV Catheter Type (from Nrs): Saline Lock Urinary Cath still in place: No Assessment/Plan Assessment/Plan 56 yo undomiciled male with hx EtOH abuse admitted for ?syncope?. per neurology and cardiology service, no indication of cardiac or neurologic etio of pt's symptoms. Pt's hospitalization notable for rash-->pt seen by rheum and diagnosed with leukocytic vasculitis. PLAN CM to ensure pt will have a PCP with whom he will be able to follow up after discharge EtOH abuse: TAPER LIBRIUM. Lumbar compression fracture: from fall, sp neurosurg eval at OSH. PT eval Rash: ?vasculitis. as per rheum. will need outpatient rheum and derm f/u DM2: cont current management HTN: cont current meds medically stable for discharge once pt has a PCP Subjective 24 Hr Interval Summary Free Text/Dictation Working with PT at time of my eval Exam/Review of Systems Vital Signs Vitals Vital Signs Date Time Temp Pulse Resp B/P Pulse Ox O2 Delivery O2 Flow Rate FiO2 08/07/17 16:08 97.5 100 18 131/75 98 08/04/17 20:00 Room Air Intake and Output 08/06/17 08/06/17 08/07/17 15:00 23:00 07:00 Intake Total 1260 ml 550 ml Balance 1260 ml 550 ml Exam nad resp nonlabored no abd distension no edema no rashes Results Result Diagram: 08/04/17 0532 08/05/17 0508 Results 24 hrs Laboratory Tests Test 08/06/17 17:00 08/06/17 20:16 08/07/17 01:48 08/07/17 07:55 Bedside Glucose 195 196 209 151 Test 08/07/17 12:02 08/07/17 12:04 Bedside Glucose 158 Hemoglobin A1c 6.8 H Medications Medications Current Medications Ondansetron HCl (Zofran Inj) 4 mg Q6H PRN IV NAUSEA AND/OR VOMITING; Start at 02:00 Diphenhydramine HCl (Benadryl) 25 mg Q8 PO Last administered on 08/07/17t 14: 59; Admin Dose 25 MG; Start 07/31/17 at 06:00 Diagnostic Test (Pha) (Accu-Chek) 1 ea 02 XX Last administered on 08/07/17 02 :13; Admin Dose 1 EA; Start 07/31/17 at 02:00 Diagnostic Test (Pha) (Accu-Chek) 1 ea 02 XX Last administered on 08/04/17 02 :52; Admin Dose 1 EA; Start 07/31/17 at 02:00 Miscellaneous Information 1 ea NOTE XX ; Start 07/31/17 at 02:30 Glucose (Glutose) 15 gm Q15M PRN PO DECREASED GLUCOSE; Start 07/31/17 at 02:30 Glucose (Glutose) 22.5 gm Q15M PRN PO DECREASED GLUCOSE; Start 07/31/17 at 02: 30 Dextrose (D50w Syringe) 25 ml Q15M PRN IV DECREASED GLUCOSE; Start 07/31/17 at 02:30 Dextrose (D50w Syringe) 50 ml Q15M PRN IV DECREASED GLUCOSE; Start 07/31/17 at 02:30 Glucagon (Glucagen) 1 mg Q15M PRN IM DECREASED GLUCOSE; Start 07/31/17 at 02: 30 Glucose (Glutose) 15 gm Q15M PRN BUCCAL DECREASED GLUCOSE; Start 07/31/17 at 02:30 Hydralazine HCl (Apresoline) 10 mg Q4H PRN IV SBP > 160; Start 07/31/17 at 06: 30 Lorazepam (Ativan) 2 mg Q1H PRN IV CONTROL WITHDRAWAL SYMPTOMS; Start at 06:30 Lisinopril (Zestril) 10 mg DAILY PO Last administered on 08/07/17 08:18; Admin Dose 10 MG; Start 08/01/17 at 14:00 Chlordiazepoxide (Librium) 10 mg TID PO Last administered on 08/07/17 12:03; Admin Dose 10 MG; Start 08/02/17 at 21:00 Famotidine (Pepcid) 20 mg BID PO Last administered on 08/07/17 08:17; Admin Dose 20 MG; Start 08/03/17 at 00:00 Senna (Senokot) 2 tab BID PO Last administered on 08/05/17 08:29; Admin Dose 2 TAB; Start 08/03/17 at 00:00 Tramadol HCl (Ultram) 50 mg Q6H PRN PO PAIN Last administered on 08/04/17t 12: 11; Admin Dose 50 MG; Start 08/04/17 at 06:30 PARESH CARPENTER MD Aug 07, 2017 16:39
[2017-08-07 20:30] VITALS: BP 142/77; RESP 18
[2017-08-08] MEDS: ACCU-CHEK XX SCH (02:00)
[2017-08-08 02:40] VITALS: BP 141/77; RESP 18
[2017-08-08] MEDS: INSULIN ASPART [NOVOLOG] 3 ML PEN SC SCH ×3 (08:29→17:41)
[2017-08-08] MEDS: metFORMIN 500 MG TAB PO SCH ×2 (08:33→17:45)
[2017-08-08] MEDS: SENNA TAB PO SCH (08:33)
[2017-08-08] MEDS: CHLORDIAZEPOXIDE 5 MG CAP PO SCH (08:33)
[2017-08-08] MEDS: LISINOPRIL 10 MG TAB PO SCH (08:34)
[2017-08-08 08:52] VITALS: BP 134/62; RESP 18
[2017-08-08 14:00] VITALS: BP 129/74; RESP 20
--- NOTE | 2017-08-08 14:49 | DS ---
Date/Time of Note Date/Time of Note DATE: 08/08/17 TIME: 14:46 Discharge Summary Admission/Discharge Info Admit Date/Time Jul 30, 2017 at 23:51 Discharge Date/Time Discharge Diagnosis leukocytic vasculitis. Patient Condition: Stable Consults rheum, cardiology, neurology Procedures TTE 10.25 Conclusions 1. The left ventricle is normal in size and systolic function. 2. Estimated left ventricular ejection fraction of 60-65%. 3. Grade 2 diastolic dysfunction. Hx of Present Illness This is a 56 yo male with hx of HTN, DL, DM, cervical spine disc disease who initially presented to outside hospital c/o fall. He said he had been drinking on a daily basis for over a week. At the outside hospital, he was found to have L1-L2 transverse process fracture. He was evaluated by neurosurgery who stated no surgical intervention needed. His blood alcohol level was found to be elevated. Patient was transferred to [facility] for insurance reason. Denied chest pain, palpitation, lightheadedness. He also said that his blood sugar, at times has been as low as 20. He also complains of progressively worsening generalized body rash which started over a month ago. Initially was on his right thigh area now it is spreading to different part of his body. Patient was admitted by myself here a month ago after he was transferred from an outside hospital for pain on the back of his neck and syncopal episode and hyponatremia. Cervical CT at that time showed Multilevel moderate spondylosis, worst at C6-7 with moderate central stenosis at C4-5 and C6-7 and multilevel facet and uncovertebral joint spondylosis with severe narrowing of the left C4-5, bilateral C5-6, bilateral C6-7 and left C7-T1 foramina. He was offered MRI but according to the discharge summary, he decided to be discharged in a state. His hydrochlorothiazide was discontinued at the time of discharge since it was felt to be the cause of the hyponatremia. Hospital Course Pt seen by both cardiology and neurology for his c/o syncope. Per cardiology, no evidence of cardiac etio and thought to be more likely 2/2 EtOH v hypoglycemia. Per neuro no evidence of seizures. EtOH cessation advised. Pt with rash on admission, seen by rheum. Rash thought to be leukocytic vasculitis. Pt was given 1 dose of IV steroids and rash significantly improved. Pt also noted to be snoring, PCP f/u for SHARI eval indicated. Home glipizide stopped to minimize risk of symptomatic hypoglycemia. a1c<7 copy of this dc summary given to pt and faxed to PCP's office prior to discharge Home Meds Reported Medications Diclofenac Epolamine (Flector) 1 Each Patch.td12, 1 EACH TD DAILY 07/07/17 Glipizide* (Glipizide*) 10 Mg Tablet, 10 MG PO DAILY, TAB 07/07/17 Atorvastatin* (Atorvastatin*) 40 Mg Tablet, 40 MG PO DAILY, #30 TAB 07/07/17 Follow-up Plan PCP within 2 weeks also follow up with derm and rheum to be arranged by PCP Primary Care Provider [facility] Time spent on discharge: > 30 minutes Pending Labs Laboratory Tests Test 08/07/17 16:53 08/07/17 21:15 08/08/17 02:34 08/08/17 05:17 Bedside Glucose 205mg/dL (70-220) 210mg/dL (70-220) 201mg/dL (70-220) Sodium Level 137mmol/L (135-144) Potassium Level 3.8mmol/L (3.5-5.1) Chloride Level 102mmol/L (97-110) Carbon Dioxide Level 27mmol/L (21-31) Anion Gap 12 (8-16) Blood Urea Nitrogen 17mg/dl (7-20) Creatinine 0.81mg/dl (0.61-1.24) Glucose Level 190mg/dl (70-220) Calcium Level 8.9mg/dl (8.4-10.2) Phosphorus Level 4.3mg/dl (2.5-4.9) Magnesium Level 1.3mg/dl (1.7-2.5) Test 08/08/17 08:24 08/08/17 12:14 Bedside Glucose 175mg/dL (70-220) 233mg/dL (70-220) PARESH CARPENTER MD Aug 08, 2017 14:49
[2017-08-08] MEDS ORDERED: MAGNESIUM OXIDE 400 MG TAB PO ONE (17:30)
== END 2017-08-08 19:00 | disposition home or self-care (01) | DRG 607 ==
LOC: PP2 23:51
PROVIDERS: ADMIT Internal Medicine; ATTEND Internal Medicine
DX: L95.9 Vasculitis limited to the skin, unspecified (principal); E11.649 Type 2 diabetes mellitus with hypoglycemia without coma; S32.019A Unspecified fracture of first lumbar vertebra, initial encounter for closed fracture; E87.1 Hypo-osmolality and hyponatremia; S32.029A Unspecified fracture of second lumbar vertebra, initial encounter for closed fracture; X58.XXXA Exposure to other specified factors, initial encounter; F10.129 Alcohol abuse with intoxication, unspecified; Y90.7 Blood alcohol level of 200-239 mg/100 ml; E87.6 Hypokalemia; E83.42 Hypomagnesemia; M47.812 Spondylosis without myelopathy or radiculopathy, cervical region; I10 Essential (primary) hypertension; R21 Rash and other nonspecific skin eruption; E78.5 Hyperlipidemia, unspecified; M1A.9XX0 Chronic gout, unspecified, without tophus (tophi); M50.320 Other cervical disc degeneration, mid-cervical region, unspecified level; R55 Syncope and collapse; R06.83 Snoring; Z79.4 Long term (current) use of insulin; Y93.9 Activity, unspecified; Y92.9 Unspecified place or not applicable; Y99.8 Other external cause status
CPT/HCPCS: 80048; 80053; 82306; 82595; 82962; 83036; 83735; 84100; 85025; 85651; 86021; 86038; 86140; 86160; 86235; 86706; 87081; 87340; 90686; 93306; J1815; J1940; J2920; J3411; J3475; J7030